=== PATIENT | male | born 1955 | race Caucasian/White ===

== ENCOUNTER 2016-04-01 09:41 | Inpatient (IN) | payer MEDICAID, OTHER ==
[~2016-04-01] VITALS: Ht 167.6 cm; Wt 67.3 kg
[2016-04-01] VITALS (11 sets, daily range): BP systolic 106–139; BP diastolic 59–74; PULSE 63–86; RESP 16–18; TEMP 97.8–98.2; O2SAT 95–100
[2016-04-01] MEDS ORDERED: ASPI81CH CHEW (10:18)
[2016-04-01] MEDS ORDERED: LISI10TA3 PO (10:18)
--- NOTE | 2016-04-01 10:21 | PD ---
HPI . Chest pain Chief Complaint: Chest Pain Time Seen by Provider: 10:09 Travel History International Travel<30 days: No Contact w/Intl Traveler<30days: No Traveled to known affect area: No History of Present Illness HPI The patient presents with a two-week history of chest pain. The pain comes and goes. Pain occurs with exertion and is relieved by rest. He denies any associated symptoms such as shortness of breath, nausea or diaphoresis. Patient has a history of hypertension and previous CVA. He takes aspirin, lisinopril and B12. He has not had his aspirin today. PFSH Past Medical History Cerebrovascular Accident: Yes Social History Tobacco Use: No Allergies-Medications (Allergen,Severity, Reaction): Coded Allergies: No Known Allergies (Unverified , 04/01/16) Reported Meds & Prescriptions Reported Meds & Active Scripts Active Reported Aspirin 81 Mg Chew 81 Mg CHEW DAILY Lisinopril 10 Mg Tab 10 Mg PO DAILY Review of Systems Except as stated in HPI: all other systems reviewed are Neg General / Constitutional: Positive: Other, No: Fever, Chills Cardiovascular: Positive: Chest Pain or Discomfort Respiratory: No: Shortness of Breath Gastrointestinal: No: Nausea, Vomiting Skin: Positive Other (no diaphoresis) Physical Exam Narrative GENERAL: This is a healthy-appearing man in no acute distress. SKIN: Warm and dry. HEAD: Atraumatic. Normocephalic. EYES: Pupils equal and round. ENT: No nasal bleeding or discharge. Mucous membranes pink and moist. NECK: Trachea midline. No JVD noted. CARDIOVASCULAR: Regular rate and rhythm. Heart sounds are normal. RESPIRATORY: No accessory muscle use. Lungs are clear with full air movement throughout. Chest wall is nontender. GASTROINTESTINAL: Abdomen soft, non-tender, nondistended. MUSCULOSKELETAL: No obvious deformities. No edema. NEUROLOGICAL: Awake and alert. No obvious cranial nerve deficits. Motor grossly within normal limits. Normal speech. PSYCHIATRIC: Appropriate mood and affect; insight and judgment normal. Data Data Last Documented VS Vital Signs Date Time Temp Pulse Resp B/P Pulse Ox O2 Delivery O2 Flow Rate FiO2 04/01/16 11:00 76 18 120/65 95 Room Air 04/01/16 09:55 97.9 Orders Electrocardiogram (04/01/16 ) Basic Metabolic Panel (Bmp) (04/01/16 11:09) Ckmb (Isoenzyme) Profile (04/01/16 11:09) Complete Blood Count With Diff (04/01/16 11:09) Magnesium (Mg) (04/01/16 11:09) Prothrombin Time / Inr (Pt) (04/01/16 11:09) Act Partial Throm Time (Ptt) (04/01/16 11:09) Troponin I (04/01/16 11:09) Chest, Single Ap (04/01/16 11:09) Ecg Monitoring (04/01/16 11:09) Bilateral Bp Monitoring (04/01/16 11:09) Iv Access Insert/Monitor (04/01/16 11:09) Oximetry (04/01/16 11:09) Oxygen Administration (04/01/16 11:09) Aspirin Chew (Aspirin Chew) (04/01/16 11:15) Clopidogrel (Plavix) (04/01/16 11:15) Nitroglycerin 2% Oint (Nitroglycerin 2% (04/01/16 11:15) Sodium Chloride 0.9% Flush (Ns Flush) (04/01/16 11:15) CKMB (04/01/16 11:30) CKMB% (04/01/16 11:30) Labs Laboratory Tests Test 04/01/16 11:30 White Blood Count 8.3 TH/MM3 Red Blood Count 5.04 MIL/MM3 Hemoglobin 15.7 GM/DL Hematocrit 45.7 % Mean Corpuscular Volume 90.8 FL Mean Corpuscular Hemoglobin 31.1 PG Mean Corpuscular Hemoglobin 34.3 % Concent Red Cell Distribution Width 13.8 % Platelet Count 368 TH/MM3 Mean Platelet Volume 7.9 FL Neutrophils (%) (Auto) 77.9 % Lymphocytes (%) (Auto) 16.1 % Monocytes (%) (Auto) 5.5 % Eosinophils (%) (Auto) 0.3 % Basophils (%) (Auto) 0.2 % Neutrophils # (Auto) 6.5 TH/MM3 Lymphocytes # (Auto) 1.3 TH/MM3 Monocytes # (Auto) 0.5 TH/MM3 Eosinophils # (Auto) 0.0 TH/MM3 Basophils # (Auto) 0.0 TH/MM3 CBC Comment DIFF FINAL Differential Comment Prothrombin Time 11.1 SEC Prothromb Time International 1.0 RATIO Ratio Activated Partial 28.3 SEC Thromboplast Time Sodium Level 138 MEQ/L Potassium Level 4.0 MEQ/L Chloride Level 103 MEQ/L Carbon Dioxide Level 28.2 MEQ/L Anion Gap 7 MEQ/L Blood Urea Nitrogen 12 MG/DL Creatinine 1.11 MG/DL Estimat Glomerular Filtration 67 ML/MIN Rate Random Glucose 123 MG/DL Calcium Level 8.7 MG/DL Magnesium Level 2.2 MG/DL Total Creatine Kinase 105 U/L Creatine Kinase MB 0.7 NG/ML Troponin I LESS THAN 0.02 NG/ML MDM Medical Decision Making Medical Screen Exam Complete: Yes Emergency Medical Condition: Yes Medical Record Reviewed: Yes (no old records for review.) Interpretation(s) EKG shows a normal sinus rhythm with no acute ischemic change. No old EKGs for comparison. Differential Diagnosis Differential diagnosis of chest pain includes but is not limited to musculoskeletal pain, pulmonary embolism, acute coronary syndrome, pneumonia, pleurisy Narrative Course Patient presents for evaluation of chest pain. I have explained to the patient and to his that we will do an initial evaluation here. If his initial enzymes are negative, he will be sent to the chest pain center for further evaluation. They are in agreement with this plan. CBC & BMP Diagram 04/01/16 11:30 Initial cardiac enzymes are negative. Last Impressions Chest X-Ray 04/01/16 1109 Signed Impressions: Service Date/Time: Friday, April 01, 2016 11:07 - CONCLUSION: No acute disease. Joel Davies MD The chest x-ray was independently viewed by me. The patient will be admitted to the chest pain center. Critical Care Narrative Aggregate critical care time was minutes. Time to perform other separately billable procedures was not included in the critical care time. My time did not include minutes spent treating any other patients simultaneously or on activities that did not directly contribute to the patient's treatment. The services I provided to this patient were to treat and/or prevent clinically significant deterioration due to possible ACS or unstable angina I provided critical care services requiring my management, as noted below: Chart data review, documentation time, medication orders and management, vital sign assessments/reviewing monitor data, ordering and reviewing lab tests, ordering and interpreting/reviewing x-rays and diagnostic studies, care of the patient and discussion of the patient with the admitting physicians Diagnosis Primary Impression: Chest pain Qualified Code: R07.9 - Chest pain, unspecified type Admitting Information Admitting Physician Requests: Observation Condition: Stable Devika Cruz MD Apr 01, 2016 10:21
[2016-04-01] MEDS ORDERED: CLOPIDOGREL 300 MG TAB PO ONE (11:15)
[2016-04-01] MEDS ORDERED: NITROGLYCERIN 2% OINT 1 GM PACKET TOP ONE (11:15)
[2016-04-01] MEDS ORDERED: ASPIRIN 81 MG CHEW TAB PO ONE (11:15)
[2016-04-01] MEDS ORDERED: SODIUM CHLORIDE 0.9% FLUSH 5 ML FLUSH IVF PRN ×3 (11:15→17:00)
--- NOTE | 2016-04-01 11:32 | RADRPT ---
EXAM DATE/TIME: 04/01/2016 11:07 [facility] COMPARISON: No previous studies available for comparison. INDICATIONS : Chest pain for 2 weeks that has become more severe, no shortness of breath, no chest surgery, nonsmok er MEDICAL HISTORY : None. SURGICAL HISTORY : None. ENCOUNTER: Initial ACUITY: 2 weeks PAIN SCORE: 10/10 LOCATION: Bilateral chest FINDINGS: A single view of the chest demonstrates the lungs to be symmetrically aerated without evidence of mas s, infiltrate or effusion. The cardiomediastinal contours are unremarkable. Osseous structures are intact with mild scoliosis and degenerative change. CONCLUSION: No acute disease. Joel Davies MD on April 01, 2016 at 11:30 Board Certified Radiologist. This report was verified electronically.
[2016-04-01 11:54] LABS: AUTOMATED NEUTROPHIL # 6.5 TH/MM3 (1.8-7.7); BASOPHIL % 0.2 % (0.0-2.0); EOSINOPHIL % 0.3 % (0.0-4.0); HEMATOCRIT 45.7 % (39.0-51.0); HEMO FLAGS DIFF FINAL; LYMPH % 16.1 % (9.0-44.0); LYMPHOCYTE # 1.3 TH/MM3 (1.0-4.8); MEAN CELL VOLUME 90.8 FL (80.0-100.0); MEAN CORPUSCULAR HEMOGLOBIN 31.1 PG (27.0-34.0); MEAN CORPUSCULAR HGB CONC 34.3 % (32.0-36.0); MONO % 5.5 % (0.0-8.0); NEUT % 77.9 % (16.0-70.0); PLATELET COUNT 368 TH/MM3 (150-450); RED BLOOD COUNT 5.04 MIL/MM3 (4.50-5.90); RED CELL DISTRIBUTION WIDTH 13.8 % (11.6-17.2); WHITE BLOOD COUNT 8.3 TH/MM3 (4.0-11.0)
[2016-04-01 12:21] LABS: APTT (PATIENT) 28.3 SEC (24.3-30.1); PROTHROMBIN TIME - PATIENT 11.1 SEC (9.8-11.6)
[2016-04-01 12:27] LABS: ANION GAP 7 MEQ/L (5-15); BICARBONATE 28.2 MEQ/L (21.0-32.0); BLOOD UREA NITROGEN 12 MG/DL (7-18); CHLORIDE 103 MEQ/L (98-107); GLOMERULAR FILTRATION RATE 67 ML/MIN (>89); SODIUM (NA) 138 MEQ/L (136-145)
[2016-04-01 12:28] LABS: CREATINE KINASE 105 U/L (39-308); MAGNESIUM 2.2 MG/DL (1.5-2.5)
[2016-04-01 12:40] LABS: CKMB 0.7 NG/ML (0.5-3.6)
[2016-04-01] MEDS ORDERED: ACETAMINOPHEN 500 MG CPLT PO PRN ×2 (13:30→17:00)
[2016-04-01] MEDS ORDERED: TEMAZEPAM 15 MG CAP PO PRN (13:30)
[2016-04-01] MEDS ORDERED: ALPRAZolam 0.25 MG TAB PO PRN (13:30)
[2016-04-01] MEDS ORDERED: ONDANSETRON HCL 4 MG/2 ML VIAL IV PRN ×2 (13:30→17:00)
[2016-04-01] MEDS: PANTOPRAZOLE SOD 40 MG DELAYED RELEASE TAB PO SCH (13:57)
[2016-04-01] MEDS ORDERED: SODIUM CHLOR 0.9% 1000 ML INJ 1,000 ML IV SCH (14:00)
[2016-04-01] MEDS ORDERED: HEPARIN-NS/PF INJ 500 ML ONE (14:16)
[2016-04-01] MEDS ORDERED: MIDAZOLAM HCL 2 MG/2 ML VIAL ONE (14:17)
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
[2016-04-01] MEDS ORDERED: MIDAZOLAM HCL 2 MG/2 ML VIAL IV ONE (14:30)
[2016-04-01] MEDS ORDERED: IODIXANOL 320 MG/ML 100 ML VIAL (for Cath Lab) IV ONE (16:28)
[2016-04-01] MEDS ORDERED: ceFAZolin 2 GM PREMIX 50 ML IV SCH (16:45)
[2016-04-01] MEDS ORDERED: CHLORHEXIDINE GLUCONATE 4% SOLN 120 ML BTL TOPICAL SCH (16:45)
[2016-04-01] MEDS ORDERED: PAPAVERINE INJ 60 MG, NITROGLYCERIN INJ 100 MCG, DILTIAZEM INJ 100 MG in SODIUM CHLORID... IRRIGATION SCH (16:45)
[2016-04-01] MEDS ORDERED: CEFAZOLIN INJ 500 MG in SODIUM CHLORIDE 0.9% IRR BTL 500 ML IRRIGATION SCH (16:45)
[2016-04-01] MEDS ORDERED: SODIUM CHLORIDE 0.9% FLUSH 5 ML FLUSH IV FLUSH PRN (16:45)
[2016-04-01] MEDS ORDERED: METOPROLOL TARTRATE 25 MG TAB PO SCH (16:45)
[2016-04-01] MEDS ORDERED: INSULIN REGULAR (IV INFUSION) 100 UNITS in SODIUM CHLORIDE 0.9% INJ 100 ML IV SCH (16:45)
[2016-04-01 16:57] LABS: CREATINE KINASE 76 U/L (39-308)
--- NOTE | 2016-04-01 16:58 | PD.CAR.PN ---
CVT Progress Note Subjective/Hospital Course: sts discussed with pt RISK SCORES About the STS Risk Calculator Procedure: CAB Only Risk of Mortality: 0.869% Morbidity or Mortality: 10.432% Long Length of Stay: 3.417% Short Length of Stay: 57.835% Permanent Stroke: 1.382% Prolonged Ventilation: 7.037% DSW Infection: 0.223% Renal Failure: 1.783% Reoperation: 4.656% Objective: Vital Signs Date Time Temp Pulse Resp B/P Pulse Ox O2 Delivery O2 Flow Rate FiO2 04/01/16 16:00 67 04/01/16 15:00 75 04/01/16 13:00 77 18 106/59 96 Room Air 04/01/16 11:00 76 18 120/65 95 Room Air 04/01/16 09:55 97.9 86 17 139/74 99 Labs: Laboratory Tests Test 04/01/16 11:30 White Blood Count 8.3 TH/MM3 (4.0-11.0) Red Blood Count 5.04 MIL/MM3 (4.50-5.90) Hemoglobin 15.7 GM/DL (13.0-17.0) Hematocrit 45.7 % (39.0-51.0) Mean Corpuscular Volume 90.8 FL (80.0-100.0) Mean Corpuscular Hemoglobin 31.1 PG (27.0-34.0) Mean Corpuscular Hemoglobin 34.3 % Concent (32.0-36.0) Red Cell Distribution Width 13.8 % (11.6-17.2) Platelet Count 368 TH/MM3 (150-450) Mean Platelet Volume 7.9 FL (7.0-11.0) Neutrophils (%) (Auto) 77.9 % (16.0-70.0) Lymphocytes (%) (Auto) 16.1 % (9.0-44.0) Monocytes (%) (Auto) 5.5 % (0.0-8.0) Eosinophils (%) (Auto) 0.3 % (0.0-4.0) Basophils (%) (Auto) 0.2 % (0.0-2.0) Neutrophils # (Auto) 6.5 TH/MM3 (1.8-7.7) Lymphocytes # (Auto) 1.3 TH/MM3 (1.0-4.8) Monocytes # (Auto) 0.5 TH/MM3 (0-0.9) Eosinophils # (Auto) 0.0 TH/MM3 (0-0.4) Basophils # (Auto) 0.0 TH/MM3 (0-0.2) CBC Comment DIFF FINAL Differential Comment Prothrombin Time 11.1 SEC (9.8-11.6) Prothromb Time International 1.0 RATIO Ratio Activated Partial 28.3 SEC Thromboplast Time (24.3-30.1) Sodium Level 138 MEQ/L (136-145) Potassium Level 4.0 MEQ/L (3.5-5.1) Chloride Level 103 MEQ/L (98-107) Carbon Dioxide Level 28.2 MEQ/L (21.0-32.0) Anion Gap 7 MEQ/L (5-15) Blood Urea Nitrogen 12 MG/DL (7-18) Creatinine 1.11 MG/DL (0.60-1.30) Estimat Glomerular Filtration 67 ML/MIN (>89) Rate Random Glucose 123 MG/DL (74-106) Calcium Level 8.7 MG/DL (8.5-10.1) Magnesium Level 2.2 MG/DL (1.5-2.5) Total Creatine Kinase 105 U/L (39-308) Creatine Kinase MB 0.7 NG/ML (0.5-3.6) Troponin I LESS THAN 0.02 NG/ML (0.02-0.05) Result Diagram: 04/01/16 1130 04/01/16 1130 Jenifer Morin Apr 01, 2016 16:58
[2016-04-01] MEDS ORDERED: MAGNESIUM HYDROXIDE SUSP 30 ML CUP PO PRN (17:00)
[2016-04-01] MEDS ORDERED: NALOXONE HCL 0.4 MG/ML AMP IV PRN (17:00)
[2016-04-01] MEDS ORDERED: SODIUM CHLORIDE 0.9% FLUSH 5 ML FLUSH FLUSH PRN (17:00)
--- NOTE | 2016-04-01 18:24 | MA ---
cc: CHARLIE LI MD DATE: 04/01/2016 PROCEDURE DETAILS The patient was prepped and draped in the usual fashion. A 6 sheath was inserted percutaneously into the right femoral artery. Coronary angiography was done with Floridalma ____ catheters. Left ventriculography was done with pigtail catheter. RESULTS Aortic pressure is 113/61. The left ventricular end-diastolic pressure was 1.0. There was no gradient across the aortic valve. Coronary angiography. The left main was essentially nonexistent. There appeared to be almost two separate ostia for both the circumflex and the LAD. The left circumflex artery demonstrated a 20-30% stenosis in its proximal portion. It was a large dominant artery. The distal portion of the circumflex was free from significant disease although there were some mild luminal irregularities noted. The left anterior descending artery demonstrated a high-grade stenosis at its ostium which was essentially the takeoff from the aorta. It then bifurcated into a large diagonal branch and the LAD. Just proximal from the aorta to the bifurcation a high-grade stenosis of approximately 90% or greater was present. In the standing diagonal branch a secondary branch was given off which also demonstrated a high-grade stenosis of approximately 90%. The right coronary was anatomically nondominant and small, a 90% stenosis was present in its proximal portion. The left ventricle was normal in size. Overall left ventricular ejection fraction was estimated at 60-65%. There is no mitral regurgitation. Aortic valve pull back appeared normal. CONCLUSION The patient demonstrates rather significant disease as described above. He is not a good candidate for percutaneous intervention because of the location of the lesion and the bifurcation. He would appear to be a candidate for bypass grafting to the distal LAD, first and possibly second diagonal branches. It would appear that the right coronary is too small for grafting. Charlie Li MD DLW/KK /3:00 PM /6:13 PM
[2016-04-01] MEDS: METOPROLOL TARTRATE 25 MG TAB PO SCH (18:28)
[2016-04-01] MEDS: NITROGLYCERIN 2% OINT 1 GM PACKET TOP SCH ×2 (18:28→22:25)
[2016-04-01] MEDS: DOCUSATE SODIUM 100 MG CAP PO SCH ×2 (18:28→18:33)
[2016-04-01 19:56] LABS: CREATINE KINASE 63 U/L (39-308)
[2016-04-01] MEDS ORDERED: SODIUM CHLORIDE 0.9% FLUSH 5 ML FLUSH IVF SCH ×2 (21:00)
[2016-04-01] MEDS: SODIUM CHLORIDE 0.9% FLUSH 5 ML FLUSH FLUSH SCH (21:00)
[2016-04-01] MEDS ORDERED: SODIUM CHLORIDE 0.9% FLUSH 5 ML FLUSH IV FLUSH SCH (21:00)
[2016-04-01] MEDS: FAMOTIDINE 20 MG TAB PO SCH (22:25)
--- NOTE | 2016-04-01 22:44 | RADRPT ---
EXAM DATE/TIME: 04/01/2016 21:14 [facility] COMPARISON: No previous studies available for comparison. INDICATIONS : Preop cardiac surgery. MEDICAL HISTORY : Hypertension. CVA. SURGICAL HISTORY : Appendectomy. ENCOUNTER: Initial ACUITY: 1 day PAIN SCORE: 0/10 LOCATION: Bilateral leg. GREATER SAPHENOUS VEIN THIGH: PROXIMAL: Right 2 mm Left 3 mm MID: Right 2 mm Left 2 mm DISTAL: Right Non-visualized Left 2 mm CALF: PROXIMAL: Right Non-visualized Left 2 mm MID: Right Non-visualized Left 2 mm DISTAL: Right Non-visualized Left 1 mm FINDINGS: The venous system of the lower extremities are patent by color Doppler imaging. Measurements of the leg veins (in mm) are listed above. CONCLUSION: Venous mapping as above. Ranjit Guerrier MD on April 01, 2016 at 22:43 Board Certified Radiologist. This report was verified electronically.
--- NOTE | 2016-04-01 22:44 | RADRPT ---
EXAM DATE/TIME: 04/01/2016 21:02 [facility] COMPARISON: No previous studies available for comparison. INDICATIONS : Preop cardiac surgery. MEDICAL HISTORY : Hypertension. CVA. SURGICAL HISTORY : Appendectomy. ENCOUNTER: Initial ACUITY: 1 day PAIN SCORE: 0/10 LOCATION: Bilateral leg. TECHNIQUE: Venous ultrasound of the left and right leg was performed from the inguinal ligament to the proximal calf. Real-time, color Doppler and spectral tracing, compression and augmentation techniques were us ed. FINDINGS: RIGHT LEG: There is normal compressibility of the deep venous system from the inguinal region to the proximal ca lf. No echogenic clot is seen in the lumen of the common femoral, femoral, popliteal, and posterior tibial veins. There is a normal response of the venous system to proximal and distal augmentation an d respiration. LEFT LEG: There is normal compressibility of the deep venous system from the inguinal region to the proximal ca lf. No echogenic clot is seen in the lumen of the common femoral, femoral, popliteal, and posterior tibial veins. There is a normal response of the venous system to proximal and distal augmentation an d respiration. CONCLUSION: No DVT. Ranjit Guerrier MD on April 01, 2016 at 22:42 Board Certified Radiologist. This report was verified electronically.
--- NOTE | 2016-04-01 22:53 | RADRPT ---
EXAM DATE/TIME: 04/01/2016 21:44 [facility] COMPARISON: No previous studies available for comparison. INDICATIONS : Preop cardiac surgery. MEDICAL HISTORY : Hypertension. CVA. SURGICAL HISTORY : Appendectomy. ENCOUNTER: Initial ACUITY: 1 day PAIN SCORE: 0/10 LOCATION: Bilateral neck PEAK SYSTOLIC VELOCITIES (cm/sec): ICA/CCA RATIO: Right: 0.6 Left: 1.4 ICA: Right: 75 Left: 121 CCA: Right: 116 Left: 90 ECA: Right: 197 Left: 153 VERTEBRAL: Right: 37 antegrade Left: 46 antegrade Elevated flow velocities and ICA/CCA ratios have been found to correlate with increased degrees of vessel stenosis, calculated as percentage of diameter relative to a normal segment of distal ICA/CCA FINDINGS: RIGHT CAROTID: There is mild plaque at the carotid bulb region without a significant stenosis is visualized. The wa veforms are within normal limits. LEFT CAROTID: There is moderate soft plaque at the left carotid bulb/proximal internal carotid artery region. The p eak systolic velocities are not clearly elevated in this region however. The waveforms are within no rmal limits. VERTEBRAL ARTERIES: Antegrade flow is seen in both vertebral arteries. MISCELLANEOUS: None. CONCLUSION: Moderate soft plaque at the proximal left internal carotid artery. The peak systolic velocities not c learly elevated. However given the appearance on the grayscale, a significant stenosis cannot be excl uded. Further evaluation with a CTA or MRA would be recommended. Ranjit Guerrier MD on April 01, 2016 at 22:49 Board Certified Radiologist. This report was verified electronically.
[2016-04-02] VITALS (27 sets, daily range): BP systolic 94–132; BP diastolic 52–62; PULSE 62–77; RESP 16–18; TEMP 97.7–98.2; O2SAT 95–96
[2016-04-02 04:55] LABS: P2Y12 REACTION UNITS (PRU) 182 PRU (194-418)
[2016-04-02] MEDS: DOCUSATE SODIUM 100 MG CAP PO SCH ×2 (05:00→17:05)
[2016-04-02] MEDS: NITROGLYCERIN 2% OINT 1 GM PACKET TOP SCH ×3 (06:18→17:05)
[2016-04-02] MEDS: METOPROLOL TARTRATE 25 MG TAB PO SCH ×2 (06:18→17:05)
--- NOTE | 2016-04-02 08:13 | PD.CARD.PN ---
Subjective Subjective Remarks Mild chest pain goig to bathroom. Resolved spontaneously. Objective Vital Signs / I&O Vital Signs Date Time Temp Pulse Resp B/P Pulse Ox O2 Delivery O2 Flow Rate FiO2 04/02/16 08:11 77 04/02/16 07:47 97.7 68 16 118/57 95 04/02/16 07:00 66 04/02/16 05:00 70 04/02/16 04:00 68 04/02/16 03:00 97.9 68 18 117/56 95 04/02/16 03:00 68 04/02/16 02:00 72 04/02/16 01:00 73 04/02/16 00:00 73 04/01/16 23:06 21 04/01/16 23:00 97.8 70 16 133/65 100 04/01/16 23:00 74 04/01/16 22:00 63 04/01/16 21:00 70 04/01/16 20:00 73 04/01/16 19:00 65 04/01/16 19:00 98.2 67 16 129/67 96 04/01/16 16:00 67 04/01/16 15:36 98.2 74 16 138/65 96 04/01/16 15:00 75 04/01/16 13:00 77 18 106/59 96 Room Air 04/01/16 11:00 76 18 120/65 95 Room Air 04/01/16 09:55 97.9 86 17 139/74 99 I/O 04/01/16 04/01/16 04/01/16 04/02/16 04/02/16 04/02/16 07:00 15:00 23:00 07:00 15:00 23:00 Intake Total 480 ml Output Total 250 ml Balance -250 ml 480 ml Intake Oral 480 ml Output Urine Total 250 ml # Voids 3 Physical Exam Lungs clear No murmur groin OK Laboratory Laboratory Tests Test 04/01/16 04/01/16 04/01/16 04/02/16 11:30 16:16 18:32 03:51 White Blood Count 8.3 TH/MM3 Red Blood Count 5.04 MIL/MM3 Hemoglobin 15.7 GM/DL Hematocrit 45.7 % Mean Corpuscular Volume 90.8 FL Mean Corpuscular Hemoglobin 31.1 PG Mean Corpuscular Hemoglobin 34.3 % Concent Red Cell Distribution Width 13.8 % Platelet Count 368 TH/MM3 Mean Platelet Volume 7.9 FL Neutrophils (%) (Auto) 77.9 % Lymphocytes (%) (Auto) 16.1 % Monocytes (%) (Auto) 5.5 % Eosinophils (%) (Auto) 0.3 % Basophils (%) (Auto) 0.2 % Neutrophils # (Auto) 6.5 TH/MM3 Lymphocytes # (Auto) 1.3 TH/MM3 Monocytes # (Auto) 0.5 TH/MM3 Eosinophils # (Auto) 0.0 TH/MM3 Basophils # (Auto) 0.0 TH/MM3 CBC Comment DIFF FINAL Differential Comment Prothrombin Time 11.1 SEC Prothromb Time International 1.0 RATIO Ratio Activated Partial 28.3 SEC Thromboplast Time Sodium Level 138 MEQ/L Potassium Level 4.0 MEQ/L Chloride Level 103 MEQ/L Carbon Dioxide Level 28.2 MEQ/L Anion Gap 7 MEQ/L Blood Urea Nitrogen 12 MG/DL Creatinine 1.11 MG/DL Estimat Glomerular Filtration 67 ML/MIN Rate Random Glucose 123 MG/DL Calcium Level 8.7 MG/DL Magnesium Level 2.2 MG/DL Total Creatine Kinase 105 U/L 76 U/L 63 U/L Creatine Kinase MB 0.7 NG/ML Troponin I LESS THAN 0.02 LESS THAN 0.02 LESS THAN 0.02 NG/ML NG/ML NG/ML Platelet Function P2Y12 React 182 PRU Units Assessment and Plan Assessment and Plan Severe CAD for Cabg Charlie Li MD, FACC Apr 02, 2016 08:13
--- NOTE | 2016-04-02 08:16 | EKG ---
Date Performed: 04/01/2016 Time Performed: 10:05:40 PTAGE: 60 years EKG: Sinus rhythm NORMAL ECG NO PREVIOUS TRACING DOCTOR: Charlie Li Interpretating Date/Time 04/02/2016 08:13:42
--- NOTE | 2016-04-02 08:26 | MH ---
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. He is here for another month, apparently has been riding his bicycle and had been having some progressive chest discomfort. This gentleman apparently has been complaining of some pain in the middle of his chest off and on with heavy exertion for over a year and then 2 weeks ago started noticing some chest discomfort while he was riding his bike and each day it has progressively gotten worse where he has just ridden a short distance and developed this chest pain. He says it lasts a couple of minutes and usually stops at rest. He denied any shortness of breath or diaphoresis. He said he had a stroke up in [place] in December of 2015 was also having a hard time walking up a hill and will also get chest tightness with short of breath at that time. He was told at that time to take aspirin, blood pressure medicine and control his cholesterol which he was intolerant to Lipitor, had significant myopathies and the statin was discontinued and was told to avoid statins by his primary care. We were consulted to evaluate. The patient underwent cardiac catheterization by Dr. Charlie Li which showed the proximal LAD 95%, diagonal 95%, the right coronary artery was 90% occluded. Ejection fraction is 65%. PAST MEDICAL HISTORY The patient's past medical history is significant for: 1. A cerebrovascular accident in December 2015. He had some recall problems with numbers, remembering things. He had no motor dysfunction. He still has occasional problems with recalling some things such as words and trying to get a couple of words out, but otherwise: 2. Hypertension. 3. Hyperlipidemia. 4. Macular degeneration. 5. Glaucoma. 6. Gout. 7. Osteoarthritis. 8. Hiatal hernia. PAST SURGICAL HISTORY Surgery includes: Appendectomy. ALLERGIES NO KNOWN DRUG ALLERGIES. MEDICATIONS He takes: 1. Aspirin 81. 2. Lisinopril 10 p.o. daily. FAMILY HISTORY Father at 61 from non-Hodgkin's lymphoma. Mother at 83 questionable myocardial infarction. SOCIAL HISTORY He smoked for over 30 years a half-a-pack, quit for 10 years, started back up 8 years ago, smoked a couple of cigarettes but stopped completely in December of 2015. Rare alcohol. , two children. REVIEW OF SYSTEMS GENERAL: No night sweats, fever, heat or cold intolerance. SKIN: No psoriasis, itching or hives. HEENT: No blurred vision, hearing loss. RESPIRATORY: No cough or shortness of breath. CARDIOVASCULAR: As above in the history of present illness. GASTROINTESTINAL: No diarrhea, vomiting. GENITOURINARY: No burning, frequency, urgency CENTRAL NERVOUS SYSTEM: No history of TIA, CVA, seizure disorder. ENDOCRINOLOGY: No history of diabetes. No hypothyroidism. PHYSICAL EXAMINATION VITAL SIGNS: On exam blood pressure 138/60, heart rate of 70. Afebrile. GENERAL: The patient is awake, alert, in no acute distress. HEENT: Head is normocephalic, atraumatic. Pupils equal and reactive. Oral mucosa pink, moist. NECK: Supple. No JVD. CARDIOVASCULAR: Heart sounds S1-S2, regular rate and rhythm. No rubs, murmurs or gallops. LUNGS: Clear to auscultation. No wheezes, rales or rhonchi. ABDOMEN: Soft, nontender. No masses or organomegaly. EXTREMITIES: Reveal no cyanosis, clubbing or edema. He has a dressing to his right groin site. No hematoma noted. + distal pulses. LABORATORY FINDINGS Shows hemoglobin of 15, hematocrit of 45, white cell count 8.3, platelet count of 368. Sodium 138, potassium 4.0, BUN 12 with a creatinine of 1.11. Glucose 123. Troponin 0.02, second set is pending and third set pending. IMAGING Chest x-ray Is unremarkable. EKG sinus rhythm with nonspecific T-wave changes. ASSESSMENT AND PLAN This is a 60-year-old male admitted to the emergency room with unstable angina, status post heart catheterization, apparently received 300 mg of Plavix pre catheterization in the ED. He has three-vessel disease with EF of 65%. Procedures, alternatives and risks will be discussed by Dr. Anne-Marie Ramirez and at this time will check a platelet inhibition test in the a.m. to evaluate timing for surgery, possibly on . The patient apparently has history of hyperlipidemia, we will check a lipid profile. Also he is intolerant to statins, will need to be followed up closely. Continue baby aspirin. Low dose beta jeremiah, nitro and planning timing for surgery once we get his platelet inhibition test. DICTATED BY: BERKLEY Gonzales Anne-Marie MD SENDY Vasquez/LAVON /5:05 PM /8:25 AM
[2016-04-02] MEDS ORDERED: ASPIRIN 325 MG TAB PO SCH (09:00)
[2016-04-02] MEDS: NITROGLYCERIN 0.4 MG SL 25 TABS/BTL SL PRN ×2 (09:00→09:13)
[2016-04-02] MEDS ORDERED: LISINOPRIL 10 MG TAB PO SCH (09:00)
[2016-04-02] MEDS: SODIUM CHLORIDE 0.9% FLUSH 5 ML FLUSH FLUSH SCH ×2 (09:15→21:21)
[2016-04-02] MEDS: FAMOTIDINE 20 MG TAB PO SCH ×2 (09:15→21:17)
[2016-04-02] MEDS: ASPIRIN 81 MG CHEW TAB PO SCH (09:15)
[2016-04-02] MEDS: PANTOPRAZOLE SOD 40 MG DELAYED RELEASE TAB PO SCH (09:15)
[2016-04-02] MEDS: ACETAMINOPHEN/HYDROcodone 325 MG/5 MG TAB PO PRN ×2 (10:21→17:05)
[2016-04-02] MEDS ORDERED: DICYCLOMINE HCL 20 MG TAB PO PRN (11:00)
[2016-04-02 11:30] LABS: BLOOD, URINE NEG (NEG); COMMENT (UR) CULT NOT INDICATED; CULTURE IF INDICATED CULT NOT INDICATED; GLUCOSE,URINE NEG (NEG); KETONE, URINE NEG (NEG); MUCUS URINE FEW /lpf (OCC); NITRITE,URINE NEG (NEG); PH, URINE 5.5 (5.0-8.5); SQUAMOUS EPITHELIAL CELL URINE <1 /hpf (0-5); URINE COLOR YELLOW (YELLW/STRAW)
[2016-04-02] MEDS ORDERED: HEPARIN-D5W INJ 250 ML IV SCH (11:45)
[2016-04-02 12:02] LABS: APTT (PATIENT) 30.4 SEC (24.3-30.1); PROTHROMBIN TIME - PATIENT 11.3 SEC (9.8-11.6)
--- NOTE | 2016-04-02 14:46 | PD.CAR.PN ---
CVT Progress Note Subjective/Hospital Course: 60/ male admitted with unstable angina, admitted to chest pain center, and underwent cardiac cath by Dr Li, found to have multivessel disease with EF 65%, received 300mg plavix in ED PMH: IBS, hx of CVA Dec 2015 / has some short term memory and recall loss, no motor deficits , HTN, HLP, glaucoma , gout intolerant to statins ( has severe myalgia ) PRU : 182 04/02 04/02 had episode of chest pain this am after getting up to bathroom , relieved with NTG, ECG unchanged Heparin gtt started, also has hx of irritable bowel, relieved with pain meds, ( hydrocodone) , Bentyl prn on schedule for surgery on Objective: GENERAL: SKIN: Warm and dry. HEAD: Normocephalic. EYES: No scleral icterus. No injection or drainage. NECK: Supple, trachea midline. No JVD or lymphadenopathy. CARDIOVASCULAR: Regular rate and rhythm without murmurs, gallops, or rubs. RESPIRATORY: Breath sounds equal bilaterally. No accessory muscle use. GASTROINTESTINAL: Abdomen soft, non-tender, nondistended. MUSCULOSKELETAL: No cyanosis, or edema. BACK: Nontender without obvious deformity. No CVA tenderness. Vital Signs Date Time Temp Pulse Resp B/P Pulse Ox O2 Delivery O2 Flow Rate FiO2 04/02/16 14:17 77 04/02/16 13:00 67 04/02/16 12:00 64 04/02/16 11:30 98.2 62 16 94/52 96 04/02/16 11:00 77 04/02/16 10:00 70 04/02/16 09:00 65 04/02/16 08:40 95 21 04/02/16 08:11 77 04/02/16 07:47 97.7 68 16 118/57 95 04/02/16 07:00 66 04/02/16 05:00 70 04/02/16 04:00 68 04/02/16 03:00 97.9 68 18 117/56 95 04/02/16 03:00 68 04/02/16 02:00 72 04/02/16 01:00 73 04/02/16 00:00 73 04/01/16 23:06 21 04/01/16 23:00 97.8 70 16 133/65 100 04/01/16 23:00 74 04/01/16 22:00 63 04/01/16 21:00 70 04/01/16 20:00 73 04/01/16 19:00 65 04/01/16 19:00 98.2 67 16 129/67 96 04/01/16 16:00 67 04/01/16 15:36 98.2 74 16 138/65 96 04/01/16 15:00 75 Labs: Laboratory Tests Test 04/02/16 04/02/16 04/02/16 04/02/16 03:51 07:51 11:15 11:29 Platelet Function P2Y12 React 182 PRU Units (194-418) Nasal Screen MRSA (PCR) NEGATIVE (NEGATIVE) Urine Color YELLOW (YELLW/STRAW) Urine Turbidity CLEAR (CLEAR) Urine pH 5.5 (5.0-8.5) Urine Specific [employer] 1.017 (1.002-1.035) Urine Protein NEG mg/dL (NEG-TRACE) Urine Glucose (UA) NEG mg/dL (NEG) Urine Ketones NEG mg/dL (NEG) Urine Occult Blood NEG (NEG) Urine Nitrite NEG (NEG) Urine Bilirubin NEG (NEG) Urine Urobilinogen LESS THAN 2.0 MG/DL (LESS THAN 2.0) Urine Leukocyte Esterase NEG (NEG) Urine WBC 1 /hpf (0-5) Urine Squamous Epithelial <1 /hpf (0-5) Cells Urine Mucus FEW /lpf (OCC) Microscopic Urinalysis Comment CULT NOT INDICATED Prothrombin Time 11.3 SEC (9.8-11.6) Prothromb Time International 1.0 RATIO Ratio Activated Partial 30.4 SEC Thromboplast Time (24.3-30.1) Result Diagram: 04/01/16 1130 04/01/16 1130 Telemetry: NSR (1) Unstable angina Plan: ASA, BB , intolerant to statin for surgery on 03/21 ( has dose of plavix 04/01 episode of chest pain this am , relieved with NTG started on heparin gtt (2) Coronary artery disease (3) Hyperlipemia Plan: intolerant to statin (4) Hypertension Plan: controlled (5) Irritable bowel syndrome (IBS) Plan: prn pain meds, prn Jenifer Heart Apr 02, 2016 14:46
[2016-04-02 15:58] LABS: HEMOGLOBIN A1a 1.1 %; HEMOGLOBIN A1b 0.8 %; HEMOGLOBIN Ao 85.4 %; HEMOGLOBIN F 1.2 %; HEMOGLOBIN LA1C 1.8 %; HEMOGLOBIN P3 3.5 %
[2016-04-02] MEDS ORDERED: HEPARIN SODIUM - IV 10,000 UNITS/10 ML VIAL IV PRN (17:00)
--- NOTE | 2016-04-02 17:42 | EKG ---
Date Performed: 04/02/2016 Time Performed: 09:02:18 PTAGE: 60 years EKG: Sinus rhythm Compared to prior tracing no significant change Normal ECG PREVIOUS TRACING : 04/01/2016 10.05 DOCTOR: Shahriar Gramajo Interpretating Date/Time 04/02/2016 17:40:44
[2016-04-02 19:55] LABS: APTT (PATIENT) 32.9 SEC (24.3-30.1)
[2016-04-02] MEDS: HEPARIN SODIUM - IV 10,000 UNITS/10 ML VIAL IV PRN (21:17)
[2016-04-03] VITALS (21 sets, daily range): BP systolic 114–144; BP diastolic 62–78; PULSE 60–85; RESP 16–18; TEMP 97.7–98.4; O2SAT 95–98
[2016-04-03] MEDS: NITROGLYCERIN 2% OINT 1 GM PACKET TOP SCH ×3 (00:14→10:51)
[2016-04-03 03:54] LABS: APTT (PATIENT) 36.6 SEC (24.3-30.1)
[2016-04-03] MEDS: HEPARIN SODIUM - IV 10,000 UNITS/10 ML VIAL IV PRN ×2 (04:22→20:21)
[2016-04-03] MEDS: ACETAMINOPHEN/HYDROcodone 325 MG/7.5 MG TAB PO PRN ×2 (04:28→11:22)
[2016-04-03] MEDS: NITROGLYCERIN 0.4 MG SL 25 TABS/BTL SL PRN (04:35)
[2016-04-03] MEDS: METOPROLOL TARTRATE 25 MG TAB PO SCH ×2 (06:52→18:00)
[2016-04-03] MEDS: DOCUSATE SODIUM 100 MG CAP PO SCH ×2 (06:52→17:00)
--- NOTE | 2016-04-03 07:41 | PD.CARD.PN ---
Subjective Subjective Remarks continues to have chest pain with exertion Objective Vital Signs / I&O Vital Signs Date Time Temp Pulse Resp B/P Pulse Ox O2 Delivery O2 Flow Rate FiO2 04/03/16 06:05 75 04/03/16 05:00 70 04/03/16 04:00 78 04/03/16 04:00 98.0 79 18 125/66 95 04/03/16 03:00 78 04/03/16 02:00 70 04/03/16 01:00 73 04/03/16 00:00 98.0 85 18 118/62 95 04/03/16 00:00 72 04/02/16 23:00 77 04/02/16 22:00 64 04/02/16 21:00 63 04/02/16 20:00 98.0 67 18 132/62 95 04/02/16 20:00 69 04/02/16 19:00 67 04/02/16 18:16 64 04/02/16 17:25 97.9 70 16 118/57 96 04/02/16 17:00 68 04/02/16 16:00 72 04/02/16 15:00 68 04/02/16 14:17 77 04/02/16 13:00 67 04/02/16 12:00 64 04/02/16 11:30 98.2 62 16 94/52 96 04/02/16 11:00 77 04/02/16 10:00 70 04/02/16 09:00 65 04/02/16 08:40 95 21 04/02/16 08:11 77 04/02/16 07:47 97.7 68 16 118/57 95 I/O 04/02/16 04/02/16 04/02/16 04/03/16 04/03/16 04/03/16 07:00 15:00 23:00 07:00 15:00 23:00 Intake Total 480 ml 768 ml 480 ml Output Total 150 ml 350 ml Balance 480 ml 618 ml 130 ml Intake Oral 480 ml 720 ml 480 ml IV Total 48 ml Output Urine Total 150 ml 350 ml # Voids 3 1 0 # Bowel Movements 1 Physical Exam GENERAL: Well-nourished, well-developed patient in no apparent distress. NECK: No JVD. No carotid bruit. CARDIOVASCULAR: Regular rate and rhythm. S1/S2 no murmur, rub, or gallop. RESPIRATORY: No accessory muscle use. Clear to auscultation. Breath sounds equal bilaterally. GASTROINTESTINAL: Abdomen soft, non-tender, nondistended. MUSCULOSKELETAL: Extremities without clubbing, cyanosis, or edema. Laboratory Laboratory Tests Test 04/02/16 04/02/16 04/02/16 04/02/16 07:51 11:15 11:29 19:17 Nasal Screen MRSA (PCR) NEGATIVE Urine Color YELLOW Urine Turbidity CLEAR Urine pH 5.5 Urine Specific [employer] 1.017 Urine Protein NEG mg/dL Urine Glucose (UA) NEG mg/dL Urine Ketones NEG mg/dL Urine Occult Blood NEG Urine Nitrite NEG Urine Bilirubin NEG Urine Urobilinogen LESS THAN 2.0 MG/DL Urine Leukocyte Esterase NEG Urine WBC 1 /hpf Urine Squamous Epithelial <1 /hpf Cells Urine Mucus FEW /lpf Microscopic Urinalysis Comment CULT NOT INDICATED Prothrombin Time 11.3 SEC Prothromb Time International 1.0 RATIO Ratio Activated Partial 30.4 SEC 32.9 SEC Thromboplast Time Test 04/03/16 04/03/16 03:11 04:30 Activated Partial 36.6 SEC Thromboplast Time Blood Type O POSITIVE O POSITIVE Antibody Screen NEGATIVE Crossmatch Leukocyte-Reduced Red Blood Cells Blood Bank Comment Assessment and Plan Problem List: (1) Unstable angina (2) Coronary artery disease (3) Hyperlipemia (4) Hypertension Assessment and Plan Multivessel CAD - CABG planned for tomorrow HTN - well controlled Fran Munoz Apr 03, 2016 07:41
[2016-04-03] MEDS: SODIUM CHLORIDE 0.9% FLUSH 5 ML FLUSH FLUSH SCH ×2 (07:49→20:25)
[2016-04-03] MEDS: PANTOPRAZOLE SOD 40 MG DELAYED RELEASE TAB PO SCH (08:49)
[2016-04-03] MEDS: FAMOTIDINE 20 MG TAB PO SCH ×2 (08:49→20:25)
[2016-04-03] MEDS: ASPIRIN 81 MG CHEW TAB PO SCH (08:49)
[2016-04-03] MEDS ORDERED: NITROGLYCERIN-DEXTROSE INJ 250 ML ONE (10:50)
[2016-04-03] MEDS ORDERED: NITROGLYCERIN-DEXTROSE INJ 250 ML IV SCH (12:00)
[2016-04-03] MEDS ORDERED: PILL SPLITTER OTHER PRN (12:00)
[2016-04-03] MEDS ORDERED: amLODIPine BESYLATE 5 MG TAB PO SCH (12:00)
[2016-04-03 12:22] LABS: APTT (PATIENT) 40.1 SEC (24.3-30.1)
[2016-04-03 12:35] LABS: INDIRECT BILIRUBIN 0.8 MG/DL (0.0-0.8)
--- NOTE | 2016-04-03 14:37 | PD.CAR.PN ---
CVT Progress Note Subjective/Hospital Course: 60/ male admitted with unstable angina, admitted to chest pain center, and underwent cardiac cath by Dr Li, found to have multivessel disease with EF 65%, received 300mg plavix in ED PMH: IBS, hx of CVA Dec 2015 / has some short term memory and recall loss, no motor deficits , HTN, HLP, glaucoma , gout intolerant to statins ( has severe myalgia ) PRU : 182 04/02 04/02 had episode of chest pain this am after getting up to bathroom , relieved with NTG, ECG unchanged Heparin gtt started, also has hx of irritable bowel, relieved with pain meds, ( hydrocodone) , Bentyl prn on schedule for surgery on 04/03 had episode of chest pain this am while eating did not tell nurse, no ECG changes, trop neg changed to Nitro gtt, continue heparin on ASA, statin BB, pain relieved after 3-5 min no further chest pain since, Dr Ramirez made aware scheduled for surgery in am Objective: GENERAL: SKIN: Warm and dry. HEAD: Normocephalic. EYES: No scleral icterus. No injection or drainage. NECK: Supple, trachea midline. No JVD or lymphadenopathy. CARDIOVASCULAR: Regular rate and rhythm without murmurs, gallops, or rubs. RESPIRATORY: Breath sounds equal bilaterally. No accessory muscle use. GASTROINTESTINAL: Abdomen soft, non-tender, nondistended. MUSCULOSKELETAL: No cyanosis, or edema. BACK: Nontender without obvious deformity. No CVA tenderness. Vital Signs Date Time Temp Pulse Resp B/P Pulse Ox O2 Delivery O2 Flow Rate FiO2 04/03/16 14:00 73 04/03/16 13:00 71 04/03/16 12:00 70 04/03/16 11:00 73 04/03/16 11:00 98.1 75 16 144/67 97 04/03/16 10:00 72 04/03/16 09:00 60 04/03/16 08:00 66 04/03/16 07:00 65 04/03/16 07:00 98.4 66 16 114/68 96 04/03/16 06:05 75 04/03/16 05:00 70 04/03/16 04:00 78 04/03/16 04:00 98.0 79 18 125/66 95 04/03/16 03:00 78 04/03/16 02:00 70 04/03/16 01:00 73 04/03/16 00:00 98.0 85 18 118/62 95 04/03/16 00:00 72 04/02/16 23:00 77 04/02/16 22:00 64 04/02/16 21:00 63 04/02/16 20:00 98.0 67 18 132/62 95 04/02/16 20:00 69 04/02/16 19:00 67 04/02/16 18:16 64 04/02/16 17:25 97.9 70 16 118/57 96 04/02/16 17:00 68 04/02/16 16:00 72 04/02/16 15:00 68 Labs: Laboratory Tests Test 04/03/16 04/03/16 04/03/16 04/03/16 03:11 04:30 11:50 11:54 Activated Partial 36.6 SEC 40.1 SEC Thromboplast Time (24.3-30.1) (24.3-30.1) Blood Type O POSITIVE O POSITIVE Antibody Screen NEGATIVE Crossmatch Leukocyte-Reduced Red Blood Cells Blood Bank Comment Total Bilirubin 1.0 MG/DL (0.2-1.0) Direct Bilirubin 0.2 MG/DL (0.0-0.2) Indirect Bilirubin 0.8 MG/DL (0.0-0.8) Aspartate Amino Transf 12 U/L (15-37) (AST/SGOT) Alanine Aminotransferase 13 U/L (12-78) (ALT/SGPT) Alkaline Phosphatase 52 U/L (45-117) Troponin I 0.02 NG/ML (0.02-0.05) Total Protein 5.3 GM/DL (6.4-8.2) Albumin 2.6 GM/DL (3.4-5.0) Result Diagram: 04/01/16 1130 04/01/16 1130 Telemetry: NSR (1) Unstable angina (2) Coronary artery disease Plan: on BB statin , ASA Heparin and Nitro gtt ECG no changes, trop neg for OR in am (3) Hyperlipemia Plan: on statin (4) Hypertension Plan: stable Jenifer Morin Apr 03, 2016 14:36
[2016-04-03] MEDS ORDERED: MORPHINE SULFATE 4 MG/ML INJ ONE (16:25)
[2016-04-03] MEDS ORDERED: MORPHINE SULFATE 8 MG/ML INJ IV PUSH PRN (16:30)
[2016-04-03] MEDS: ACETAMINOPHEN/HYDROcodone 325 MG/5 MG TAB PO PRN (18:41)
[2016-04-03 19:00] LABS: APTT (PATIENT) 37.8 SEC (24.3-30.1)
[2016-04-03] MEDS ORDERED: ATORVASTATIN 40 MG TAB PO SCH (21:00)
[2016-04-04] VITALS (14 sets, daily range): BP systolic 97–143; BP diastolic 55–80; PULSE 67–83; RESP 12–18; TEMP 97–98.4; O2SAT 97–99
[2016-04-04 03:28] LABS: APTT (PATIENT) 50.8 SEC (24.3-30.1)
[2016-04-04] MEDS ORDERED: SODIUM CHLORID 0.9% 500 ML IV SCH (04:00)
[2016-04-04] MEDS: LACTATED RINGER'S 1000 ML IV SCH (04:00)
[2016-04-04] MEDS ORDERED: INSULIN HUMAN REGULAR 1,000 UNITS/10 ML VIAL SQ PRN (04:00)
[2016-04-04] MEDS ORDERED: VECURONIUM BROMIDE 10 MG VIAL IV ONE (05:00)
[2016-04-04] MEDS ORDERED: PROTAMINE SULFATE 250 MG/25 ML VIAL IV ONE (05:00)
[2016-04-04] MEDS ORDERED: AMIODARONE HCL 150 MG/3 ML VIAL IV ONE (05:00)
[2016-04-04] MEDS ORDERED: PHENYLEPHRINE HCL 10 MG/ML VIAL IV ONE (05:00)
[2016-04-04] MEDS ORDERED: AMINOCAPROIC ACID INJ 250 MG/ML 20 ML VIAL IV ONE (05:00)
[2016-04-04] MEDS ORDERED: NITROGLYCERIN-DEXTROSE INJ 250 ML IV ONE (05:00)
[2016-04-04] MEDS: DOCUSATE SODIUM 100 MG CAP PO SCH ×2 (05:00→16:42)
[2016-04-04] MEDS ORDERED: LIDOCAINE HCL 1% 30 ML VIAL OTHER ONE (05:00)
[2016-04-04] MEDS ORDERED: DEXMEDETOMIDINE INJ 50 ML IV ONE (05:00)
[2016-04-04] MEDS ORDERED: VANCOMYCIN HCL 1000 MG VIAL ONE (06:27)
[2016-04-04] MEDS ORDERED: methylPREDNISolone SOD SUCC 125 MG/2 ML VIAL ONE (06:27)
[2016-04-04] MEDS ORDERED: HEPARIN SODIUM - SQ 10,000 UNITS/ML VIAL ONE (06:27)
[2016-04-04] MEDS: METOPROLOL TARTRATE 25 MG TAB PO SCH (06:38)
[2016-04-04] MEDS ORDERED: CARDIOPLEGIC IRR 1,000 ML ONE (06:40)
[2016-04-04] MEDS ORDERED: POTASSIUM CHLORIDE 40 MEQ/20 ML VIAL ONE (06:41)
[2016-04-04] MEDS ORDERED: SODIUM BICARBONATE 8.4% INJ 50 ML ONE (06:41)
[2016-04-04] MEDS ORDERED: MANNITOL INJ 50 ML ONE (06:41)
[2016-04-04] MEDS ORDERED: ALBUMIN HUMAN 25% 12.5 GM/50 ML BAGP IV ONE (06:42)
[2016-04-04] MEDS ORDERED: HEPARIN SODIUM - IV 10,000 UNITS/10 ML VIAL ONE (06:43)
[2016-04-04] MEDS: ASPIRIN 81 MG CHEW TAB PO SCH (09:00)
[2016-04-04] MEDS: FAMOTIDINE 20 MG TAB PO SCH ×2 (09:00→20:58)
[2016-04-04] MEDS: PANTOPRAZOLE SOD 40 MG DELAYED RELEASE TAB PO SCH (09:00)
[2016-04-04] MEDS ORDERED: LACTATED RINGER'S 1000 ML INJ 500 ML IV PRN (09:56)
[2016-04-04] MEDS ORDERED: CALCIUM CHLORIDE INJ 1 GM in SODIUM CHLORIDE 0.9% INJ 100 ML IV PRN (10:00)
[2016-04-04] MEDS ORDERED: SODIUM CHLORIDE 0.9% FLUSH 5 ML FLUSH IV FLUSH PRN (10:00)
[2016-04-04] MEDS ORDERED: POTASSIUM CHLORIDE 20 MEQ CONTROLLED RELEASE TAB PO PRN ×2 (10:00)
[2016-04-04] MEDS ORDERED: POTASSIUM CHLOR 20 MEQ PREMIX 100 ML IV PRN ×2 (10:00)
[2016-04-04] MEDS ORDERED: CLEVIDIPINE INJ 50 ML IV SCH (10:00)
[2016-04-04] MEDS ORDERED: MAGNESIUM SULFATE INJ 2 GM in SODIUM CHLORIDE 0.9% INJ 100 ML IV PRN ×4 (10:00)
[2016-04-04] MEDS ORDERED: ACETAMINOPHEN 650 MG SUPP RECTAL PRN (10:00)
[2016-04-04] MEDS ORDERED: METOPROLOL TARTRATE 5 MG/5 ML VIAL IV PUSH PRN (10:00)
[2016-04-04] MEDS ORDERED: INSULIN REGULAR (IV INFUSION) 100 UNITS in SODIUM CHLORIDE 0.9% INJ 99 ML IV SCH (10:00)
[2016-04-04] MEDS ORDERED: Post-op Orders (for Pharmacy) MISC OTHER ONE (10:00)
[2016-04-04] MEDS ORDERED: hydrALAZINE HCL 20 MG/ML VIAL IV PRN (10:00)
[2016-04-04] MEDS ORDERED: CALCIUM CHLORIDE 10% 1 GRAM/10 ML VIAL IV PRN (10:00)
[2016-04-04] MEDS ORDERED: DEXTROSE 50% IN WATER 50 ML VIAL(D50) IV PUSH PRN (10:00)
[2016-04-04] MEDS ORDERED: ACETAMINOPHEN 325 MG TAB PO PRN (10:00)
--- NOTE | 2016-04-04 10:08 | PD.OP ---
cc: Anne-Marie Ramirez MD; Charlie Li MD, [facility] Operative Report Date of Surgery: Apr 04, 2016 Preoperative Diagnosis: (1) Chest pain (2) Unstable angina (3) Coronary artery disease Postoperative Diagnosis: same Procedure: CABG x 2 JIANG to LAD SVG to D1 EVH Anesthesia: Dr. Paula Surgeon: Anne-Marie Ramirez Dentist(s): Aaron Álvarez Operation and Findings: The risks, benefits, complications, treatment options, and expected outcomes were discussed with the patient. The possibilities of reaction to medication, pulmonary aspiration, perforation of viscus, bleeding, recurrent infection, the need for additional procedures, failure to diagnose a condition, and creating a complication requiring transfusion or operation were discussed with the patient. The patient concurred with the proposed plan, giving informed consent. The site of surgery properly noted/marked. The patient was taken to Operating Room, identified as Ranjit Epstein and the procedure verified as CABG, EVH. A Time Out was held and the above information confirmed. Standard monitoring lines and Nunes catheter were placed. General anesthesia was induced. The patient was prepped and draped in a sterile fashion. A median sternotomy was performed and electrocautery was used to obtain hemostasis. The left internal mammary artery was procured as a pedicle from the 7th rib to the 1st rib in the usual manner. Simultaneously left greater saphenous vein was procured from the left leg using a minimally invasive endoscopic technique. The vein was prepared for anastomosis and the leg wound was irrigated and closed in 2 layers. The pericardium was opened and a pericardial sling was created using interrupted 0 silk sutures. The patient was heparinized for cardiopulmonary bypass and the distal mammary pedicle was instrumented for anastomosis. The heart was instrumented for cardiopulmonary bypass in the usual manner. Antegrade blood cardioplegia was employed. The patient was placed on cardiopulmonary bypass. An aortic cross-clamp was applied and the heart was arrested using cold blood cardioplegia. Antegrade cardioplegia was administered after he each anastomosis. After adequate arrest,the 1st diagonal artery was then opened with a [place] blade and found to be a 2 millimeter good target. Saphenous vein was approximated to the D1 artery using a running 7 0 Prolene suture. The graft was measured for length and orientation and was suspended from the pericardium. The distal LAD was opened with a [place] blade and found to be a 1.5 millimeter good target. The left internal mammary artery was approximated to the LAD using a running 7 0 Prolene suture. The pedicle was attached to the epicardium using interrupted 5 0 silk suture. The patient was systemically rewarmed and received a hotshot dose of warm blood cardioplegia. The aorta was vented and the proximal anastomosis to the D1 graft was accomplished using a running 5 0 Prolene suture after creating an aortotomy was a 5 millimeter punch. The cross -clamp was removed and all proximal and distal anastomoses were examined for hemostasis. The patient was weaned from cardiopulmonary bypass. Protamine was given. There was no adverse reaction. Decannulation was carried out without incident. Wound was checked for hemostasis which was obtained using electrocautery. A 36 [place] mediastinal and 32 [place] left pleural chest was were placed and secured to the skin with 0 silk suture. The sternum was closed with stainless steel wire. The fascia was closed with 1. PDS. The subcutaneous tissue was closed using a running 2-0 Vicryl suture. The skin was closed with 4- 0 Monocryl. Sterile dressings were placed. At the end of the operation, all sponge, instruments, and needle counts were correct. The patient was transferred to the CVICU in stable condition. Findings: Good targets XC: 30 min CPB: 36 min Drains: mediastinal x 1 pleural x 1 Complications: none Disposition: to CVICU in stable condition Anne-Marie Ramirez MD Apr 04, 2016 10:08
[2016-04-04] MEDS ORDERED: MIDAZOLAM HCL 5 MG/5 ML VIAL ONE ×2 (10:55)
[2016-04-04] MEDS ORDERED: fentaNYL CITRATE 1000 MCG/20 ML VIAL ONE (10:55)
--- NOTE | 2016-04-04 12:05 | RADRPT ---
EXAM DATE/TIME: 04/04/2016 10:51 [facility] COMPARISON: No previous studies available for comparison. INDICATIONS : S/p cabg. MEDICAL HISTORY : Hypertension. Stroke. SURGICAL HISTORY : None. ENCOUNTER: Initial ACUITY: 1 day PAIN SCORE: Non-responsive. LOCATION: Bilateral chest FINDINGS: Endotracheal tube in satisfactory position. NG enters stomach. Central and left chest tube without pn eumothorax. Right central line in superior vena cava. Minimal bilateral mostly basilar airspace conso lidation. No effusions. No pneumothorax. CONCLUSION: 1. Support apparatus in satisfactory position. Minimal basilar airspace disease. No pneumothorax. Danish Mcclelland MD on April 04, 2016 at 12:03 Board Certified Radiologist. This report was verified electronically.
[2016-04-04] MEDS: POTASSIUM CHLOR 20 MEQ PREMIX 100 ML IV PRN ×2 (13:24→18:21)
[2016-04-04] MEDS: ACETAMINOPHEN 1000 MG/100 ML VIAL IV SCH ×2 (13:25→20:57)
[2016-04-04] MEDS: AMIODARONE 200 MG TAB PO SCH ×2 (13:56→22:48)
--- NOTE | 2016-04-04 14:22 | HHI.FF ---
Face to Face Verification Diagnosis: (1) Unstable angina (2) Irritable bowel syndrome (IBS) (3) S/P CABG x 2 Home Health Nursing Order: Signs/symptoms of disease process Wound care and dressing changes Nursing assessment with vital signs Instructions: Heart and Vascular Surgery patients *Special attention to sternal dressing Mandatory frequency Assess and evaluation, 4 days in a row The next week 3X week 2 times a week for 4 weeks 1 time a week for 5 weeks Schedule Heart and Vascular patients for full 60 day certification period Initial visit Review Open Heart Surgery Discharge Instructions (Sternal precautions, Activity, Elastic hose, Incision care, Driving, Incentive spirometry, Smoking, [place], Work and other) Need Betadine to paint incision Medication reconciliation Importance of follow up care/ check on appointments Make calendar record temperature daily When to call [facility] at Home nurse, review instructions, phone list Incentive Spirometry, demonstration Visit 1- Begin discharge instruction for patient family and/ or caregiver using teach back method- Signs and symptoms of infection Disease characteristics Medicines and side effects Foods and nutrition/ appetite Infection control/ hand washing/ hygiene Visit 2- Continue teaching Discharge instructions- include additional information on smoking cessation , sternal dressing (sternal vac) Visit 3- Continue teaching- Cough and deep breathing, incision monitoring. Choose my plate Visit 4- Continue teaching- Discuss limitations Discuss how they are feeling Discuss progress toward goals Incentive spirometry Q1 hr x 10, while awake, also use acapella device hourly whole awake Sternal Breast Bone Precautions: NO pushing or pulling, ( pt must use sternal pillow to support chest with all activities and with coughing ( takes up to 3 months breast bone to heal ) All females to wear sternal bra , launder as needed Daily incision care: ok to shower daily, no tub bath. Wash all incisions with liquid dial soap, clean wash cloth to each site, rinse and pat dry. Observe for any signs of infection, such as drainage which is dark yellow, mendes, green or foul smelling. Immediately report to the surgeon any drainage from the chest incision, or legs, and for any abnormal drainage from the chest tube sites. Notify surgeon if any temp >101.5 degrees F. When specialty dressing removed/ or if you do not have one, continue to shower daily as above, then rinse and pat incision dry and paint with betadine daily x 5 days. Allow steri strips to fall off if you have any. Avoid lotions, creams, salves, oils, etc. for the first month Please see attached forms for additional instructions regarding post Open Heart specialty wound vacuum dressings. ROSA ELENA or Prevena , Dressing to be removed by Nursing staff on For Dr. Ramirez patients , please obtain CBC, BMP, PA & Lat CXR in 2 weeks, results to Dr. Ramirez ( prescription will be given) ( ) (Tele: [phone]) , Valve replacement pts will need 2decho in 2 weeks with results to Dr. Ramirez . Please obtain 2 d echo at your musical instrument maker office if possible F/U appointment: as per DC instructions: PCP in 2 weeks, CV surgeon 2 weeks, Music Store Manager 3-4 weeks For any questions regarding incisions/ dressing / meds / post op care or above Symptoms, Friday 8am-5pm Heart & Vascular Surgery Office ( Dr. Jordan & Dr. Ramirez), After Hours / Nights (5pm -8am) Weekends and Holidays Please call [facility] Cardiac Intermediate Care Unit (CIC) Charge Nurse I have seen patient Ranjit Epstein on 04/04/16. My clinical findings support the need for the requested home health care services because: Deconditioned w/ increased weakness I certify that my clinical findings support that this patient is homebound because: Post-op weakness Impaired cognitive ability/safety Jenifer Morin Apr 04, 2016 14:22
[2016-04-04] MEDS: ONDANSETRON HCL 4 MG/2 ML VIAL IV PUSH PRN (15:30)
[2016-04-04] MEDS: ACETAMINOPHEN/HYDROcodone 325 MG/7.5 MG TAB PO PRN ×3 (16:42→22:48)
[2016-04-04] MEDS ORDERED: KETOROLAC TROMETHAMINE 30 MG/ML (IVP) VIAL ONE (17:59)
[2016-04-04] MEDS ORDERED: KETOROLAC TROMETHAMINE 30 MG/ML (IVP) VIAL IV PUSH ONE (18:15)
[2016-04-04] MEDS ORDERED: ACETAMINOPHEN/HYDROcodone 325 MG/5 MG TAB PO PRN ×2 (18:15)
[2016-04-04] MEDS: SODIUM CHLORIDE 0.9% FLUSH 5 ML FLUSH IV FLUSH SCH (20:58)
[2016-04-05] VITALS (18 sets, daily range): BP systolic 91–122; BP diastolic 53–75; PULSE 70–117; RESP 16–28; TEMP 97.5–99.9; O2SAT 93–99
[2016-04-05] MEDS: KETOROLAC TROMETHAMINE 30 MG/ML (IVP) VIAL IV PUSH PRN ×2 (01:37→20:02)
[2016-04-05] MEDS: ACETAMINOPHEN 1000 MG/100 ML VIAL IV SCH ×2 (02:16→08:11)
[2016-04-05] MEDS: LACTATED RINGER'S 1000 ML IV SCH (04:00)
[2016-04-05 05:00] LABS: HEMATOCRIT 31.6 % (39.0-51.0); MEAN CELL VOLUME 91.4 FL (80.0-100.0); MEAN CORPUSCULAR HEMOGLOBIN 30.2 PG (27.0-34.0); MEAN CORPUSCULAR HGB CONC 33.1 % (32.0-36.0); PLATELET COUNT 261 TH/MM3 (150-450); RED BLOOD COUNT 3.46 MIL/MM3 (4.50-5.90); RED CELL DISTRIBUTION WIDTH 13.4 % (11.6-17.2); REVIEW FLAG FINAL; WHITE BLOOD COUNT 21.4 TH/MM3 (4.0-11.0)
[2016-04-05] MEDS: DOCUSATE SODIUM 100 MG CAP PO SCH ×2 (05:06→21:00)
[2016-04-05] MEDS: AMIODARONE 200 MG TAB PO SCH ×3 (05:06→22:44)
[2016-04-05] MEDS: ACETAMINOPHEN/HYDROcodone 325 MG/7.5 MG TAB PO PRN (05:06)
[2016-04-05 05:11] LABS: POTASSIUM 4.6 MEQ/L (3.5-5.1)
--- NOTE | 2016-04-05 06:34 | RADRPT ---
EXAM DATE/TIME: 04/05/2016 05:48 [facility] COMPARISON: CHEST SINGLE AP, April 04, 2016, 10:51. INDICATIONS : Status post CABG. MEDICAL HISTORY : Hypertension. Stroke. SURGICAL HISTORY : None. ENCOUNTER: Subsequent ACUITY: 4 - 6 days PAIN SCORE: 2/10 LOCATION: chest FINDINGS: Examination of the chest demonstrates postoperative findings status post median sternotomy. Support l velasquez and tubes are in satisfactory position. Endotracheal tube is in place above the pelon. There is no evidence of pneumothorax. There is subsegmental atelectasis in the both bases. CONCLUSION: 1. Postsurgical changes as above. Subsegmental atelectasis both bases. Charlie Sims MD on April 05, 2016 at 6:31 Board Certified Radiologist. This report was verified electronically.
--- NOTE | 2016-04-05 07:28 | PD.CARD.PN ---
Subjective Subjective Remarks denies chest pain Objective Vital Signs / I&O Vital Signs Date Time Temp Pulse Resp B/P Pulse Ox O2 Delivery O2 Flow Rate FiO2 04/05/16 06:10 18 04/05/16 03:00 74 04/05/16 03:00 98.4 74 18 91/75 99 105/53 04/05/16 02:50 18 04/04/16 23:00 83 04/04/16 23:00 97.6 83 18 113/64 98 106/77 04/04/16 21:30 18 04/04/16 21:12 99 Nasal Cannula 3.00 04/04/16 19:00 98.2 74 18 123/73 98 107/65 04/04/16 19:00 74 04/04/16 15:00 72 04/04/16 15:00 97.9 04/04/16 15:00 97.9 72 17 139/73 99 131/55 04/04/16 13:02 99 Nasal Cannula 4 04/04/16 13:02 99 Nasal Cannula 4.00 04/04/16 13:00 97.7 04/04/16 12:16 50 04/04/16 12:16 98.0 68 12 138/68 97 97/55 04/04/16 12:06 68 04/04/16 12:00 97.0 68 12 139/80 98 143/60 04/04/16 10:50 98.3 04/04/16 10:49 97 50 04/04/16 10:45 50 04/04/16 10:45 98.0 68 12 138/68 97 97/55 I/O 04/04/16 04/04/16 04/04/16 04/05/16 04/05/16 04/05/16 07:00 15:00 23:00 07:00 15:00 23:00 Intake Total 480 ml 2535 ml 739 ml Output Total 400 ml 850 ml 735 ml Balance 80 ml 1685 ml 4 ml Intake Oral 240 ml 300 ml 320 ml IV Total 240 ml 2235 ml 419 ml Output Urine Total 400 ml 600 ml 685 ml Stool Total 0 ml 0 ml Chest Tube Drainage Total 250 ml 50 ml # Bowel Movements 0 Physical Exam GENERAL: Well-nourished, well-developed patient in no apparent distress. NECK: No JVD. No carotid bruit. CARDIOVASCULAR: Regular rate and rhythm. S1/S2 no murmur, rub, or gallop. RESPIRATORY: No accessory muscle use. Clear to auscultation. Breath sounds equal bilaterally. GASTROINTESTINAL: Abdomen soft, non-tender, nondistended. MUSCULOSKELETAL: Extremities without clubbing, cyanosis, or edema. Laboratory Laboratory Tests Test 04/04/16 04/05/16 21:40 04:13 Potassium Level 4.2 MEQ/L 4.6 MEQ/L White Blood Count 21.4 TH/MM3 Red Blood Count 3.46 MIL/MM3 Hemoglobin 10.5 GM/DL Hematocrit 31.6 % Mean Corpuscular Volume 91.4 FL Mean Corpuscular Hemoglobin 30.2 PG Mean Corpuscular Hemoglobin 33.1 % Concent Red Cell Distribution Width 13.4 % Platelet Count 261 TH/MM3 Mean Platelet Volume 7.9 FL Sodium Level 138 MEQ/L Chloride Level 104 MEQ/L Carbon Dioxide Level 30.0 MEQ/L Anion Gap 4 MEQ/L Blood Urea Nitrogen 10 MG/DL Creatinine 0.84 MG/DL Estimat Glomerular Filtration 93 ML/MIN Rate Random Glucose 112 MG/DL Calcium Level 7.9 MG/DL Magnesium Level 2.0 MG/DL Assessment and Plan Problem List: (1) Unstable angina (2) Coronary artery disease (3) Hyperlipemia (4) Hypertension Assessment and Plan CAD s/p 2 vessel CABG JIANG-LAD and SVG-D1 HTN - actually hypotensive, hold beta jeremiah Fran Munoz Apr 05, 2016 07:27
[2016-04-05] MEDS ORDERED: DEXTROSE 50% IN WATER 50 ML VIAL(D50) IV PRN (08:45)
[2016-04-05] MEDS ORDERED: SOD PHOSPHATE/SOD BIPHOSPHATE (ADULT) ENEMA 133ML RECTAL PRN (08:45)
[2016-04-05] MEDS ORDERED: GLUCAGON 1 MG/ML VIAL OTHER PRN (08:45)
[2016-04-05] MEDS ORDERED: BISACODYL 10 MG SUPP RECTAL PRN (08:45)
[2016-04-05] MEDS: ASPIRIN 81 MG CHEW TAB PO SCH (09:00)
[2016-04-05] MEDS: MULTIVITAMINS/MINERALS THERAPEUTIC TAB PO SCH (09:08)
[2016-04-05] MEDS: SODIUM CHLORIDE 0.9% FLUSH 5 ML FLUSH IV FLUSH SCH ×2 (09:08→21:17)
[2016-04-05] MEDS: MAGNESIUM HYDROXIDE SUSP 30 ML CUP PO SCH (09:08)
[2016-04-05] MEDS: PANTOPRAZOLE SOD 40 MG DELAYED RELEASE TAB PO SCH (09:09)
[2016-04-05] MEDS: METOPROLOL TARTRATE 25 MG TAB PO SCH ×2 (09:09→21:15)
[2016-04-05] MEDS: FAMOTIDINE 20 MG TAB PO SCH ×2 (09:09→21:00)
[2016-04-05] MEDS: INSULIN ASPART SUPPLEMENTAL SCALE SQ SCH ×4 (10:23→21:23)
[2016-04-05] MEDS: RESP: ALBUTEROL 2.5 MG/IPRATROPIUM 0.5 MG NEB (SCH) NEB ×2 (13:19→19:39)
--- NOTE | 2016-04-05 14:19 | PD.CAR.PN ---
CVT Progress Note CVT: POD #: 1 Subjective/Hospital Course: 60/ male admitted with unstable angina, admitted to chest pain center, and underwent cardiac cath by Dr Li, found to have multivessel disease with EF 65%, received 300mg plavix in ED PMH: IBS, hx of CVA Dec 2015 / has some short term memory and recall loss, no motor deficits , HTN, HLP, glaucoma , gout intolerant to statins ( has severe myalgia ) PRU : 182 04/02 04/02 had episode of chest pain this am after getting up to bathroom , relieved with NTG, ECG unchanged Heparin gtt started, also has hx of irritable bowel, relieved with pain meds, ( hydrocodone) , Bentyl prn on schedule for surgery on 04/03 had episode of chest pain this am while eating did not tell nurse, no ECG changes, trop neg changed to Nitro gtt, continue heparin on ASA, statin BB, pain relieved after 3-5 min no further chest pain since, Dr Ramirez made aware scheduled for surgery in am 04/04 CABG x 2, JIANG to LAD, SVG to D1, EVH extubated after surgery, crystalloid 2000cc, cellsaver 720cc, urine 600cc 04/05 pt has some confusion during the night hx of CVA with cognitive and memory recall in Dec 2015 mildly confused this am, was able to ambulate with rolling walker to stepdown unit with minimal assist no motor deficit noted, + facial symmetry , will need to start on plavix when chest tube out PT/OT/ speech consulted for cognitive eval leave chest tube in , pulm toileting narcotics minimized, IV narcotics dc Objective: GENERAL: SKIN: Warm and dry./ dressing in place to chest HEAD: Normocephalic. EYES: No scleral icterus. No injection or drainage. pearla , 3mm + facial symmetry NECK: Supple, trachea midline. No JVD or lymphadenopathy. CARDIOVASCULAR: Regular rate and rhythm without murmurs, gallops, or rubs. RESPIRATORY: Breath sounds equal bilaterally. No accessory muscle use. GASTROINTESTINAL: Abdomen soft, non-tender, nondistended. MUSCULOSKELETAL: No cyanosis, or edema. BACK: Nontender without obvious deformity. No CVA tenderness. Neuro : awake , alert to name and place, not time , MILLER 5/5 DTR equal ammonia worker, Vital Signs Date Time Temp Pulse Resp B/P Pulse Ox O2 Delivery O2 Flow Rate FiO2 04/05/16 14:00 79 04/05/16 13:00 73 04/05/16 12:00 74 04/05/16 11:00 97.5 73 20 119/57 96 04/05/16 11:00 73 04/05/16 10:00 73 04/05/16 08:50 19 04/05/16 07:49 83 04/05/16 07:46 97.7 83 18 116/55 97 Arterial Line 04/05/16 06:10 18 04/05/16 03:00 74 04/05/16 03:00 98.4 74 18 91/75 99 105/53 04/05/16 02:50 18 04/04/16 23:00 83 04/04/16 23:00 97.6 83 18 113/64 98 106/77 04/04/16 21:12 99 Nasal Cannula 3.00 04/04/16 19:00 98.2 74 18 123/73 98 107/65 04/04/16 19:00 74 04/04/16 15:00 72 04/04/16 15:00 97.9 04/04/16 15:00 97.9 72 17 139/73 99 131/55 Labs: Laboratory Tests Test 04/05/16 04:13 White Blood Count 21.4 TH/MM3 (4.0-11.0) Red Blood Count 3.46 MIL/MM3 (4.50-5.90) Hemoglobin 10.5 GM/DL (13.0-17.0) Hematocrit 31.6 % (39.0-51.0) Mean Corpuscular Volume 91.4 FL (80.0-100.0) Mean Corpuscular Hemoglobin 30.2 PG (27.0-34.0) Mean Corpuscular Hemoglobin 33.1 % Concent (32.0-36.0) Red Cell Distribution Width 13.4 % (11.6-17.2) Platelet Count 261 TH/MM3 (150-450) Mean Platelet Volume 7.9 FL (7.0-11.0) Sodium Level 138 MEQ/L (136-145) Potassium Level 4.6 MEQ/L (3.5-5.1) Chloride Level 104 MEQ/L (98-107) Carbon Dioxide Level 30.0 MEQ/L (21.0-32.0) Anion Gap 4 MEQ/L (5-15) Blood Urea Nitrogen 10 MG/DL (7-18) Creatinine 0.84 MG/DL (0.60-1.30) Estimat Glomerular Filtration 93 ML/MIN (>89) Rate Random Glucose 112 MG/DL (74-106) Calcium Level 7.9 MG/DL (8.5-10.1) Magnesium Level 2.0 MG/DL (1.5-2.5) Result Diagram: 04/05/1641204/05/16412 Telemetry: NSR (1) Coronary artery disease (2) S/P CABG x 2 Plan: on BB, intolerant to statin, has severe myalgia ASA , start plavix in am aggressive pulm toileting nebs, ezpap , acapella OOB, ambulate CM eval for HHC (3) Unstable angina (4) Hypertension Plan: stable (5) Hyperlipemia Plan: intolerant to statin, has severe myalgia heart healthy diet (6) History of CVA (cerebrovascular accident) Plan: PT/OT/ speech start Plavix in am Jenifer Morin Apr 05, 2016 14:19
[2016-04-05] MEDS: ONDANSETRON HCL 4 MG/2 ML VIAL IV PUSH PRN (17:08)
--- NOTE | 2016-04-05 17:28 | EKG ---
Date Performed: 04/05/2016 Time Performed: 05:52:10 PTAGE: 60 years EKG: CONSIDER ACUTE ST ELEVATION UT Sinus rhythm Anterolateral ST elevation, CONSIDER ACUTE INFARCT Abnormal ECG PREVIOUS TRACING : 04/02/[address] elevation in the anterolateral precordium is new since p rior tracing. Extends also over the inferior wall. Possible acute UT. Clinical correlation strongly r ecommended. DOCTOR: Ousmane Grijalva Interpretating Date/Time 04/05/2016 17:26:38
[2016-04-05] MEDS: SENNOSIDES 8.6 MG TAB PO SCH (21:19)
--- NOTE | 2016-04-05 22:24 | RADRPT ---
EXAM DATE/TIME: 04/05/2016 22:01 [facility] COMPARISON: No previous studies available for comparison. INDICATIONS : Altered mental status. RADIATION DOSE: 56.36 CTDIvol (mGy) MEDICAL HISTORY : None SURGICAL HISTORY : None. ENCOUNTER: Initial ACUITY: 1 day PAIN SCALE: 0/10 LOCATION: cranial TECHNIQUE: Multiple contiguous axial images were obtained of the head. Using automated exposure control and adj ustment of the mA and/or kV according to patient size, radiation dose was kept as low as reasonably a chievable to obtain optimal diagnostic quality images. FINDINGS: CEREBRUM: The ventricles are normal for age. There is some small areas of low density seen in the left posteri or parietal and left posterior temporal lobes likely representing areas of encephalomalacia. No evide nce of midline shift, mass lesion, hemorrhage or acute infarction. No extra-axial fluid collections are seen. POSTERIOR FOSSA: The cerebellum and brainstem are intact. The 4th ventricle is midline. The cerebellopontine angle i s unremarkable. EXTRACRANIAL: The visualized portion of the orbits is intact. SKULL: The calvaria is intact. No evidence of skull fracture. CONCLUSION: Linear areas of low density in the posterior left temporal and parietal lobes likely representing are as of encephalomalacia. Areas of mass effect or hemorrhage are not seen. An acute abnormality is not clearly seen. Ranjit Guerrier MD on April 05, 2016 at 22:20 Board Certified Radiologist. This report was verified electronically.
[2016-04-05] MEDS: ACETAMINOPHEN/HYDROcodone 325 MG/5 MG TAB PO PRN (22:45)
[2016-04-06] VITALS (28 sets, daily range): BP systolic 128–141; BP diastolic 63–68; PULSE 62–83; RESP 18–20; TEMP 98.5–98.9; O2SAT 92–95
[2016-04-06] MEDS: INSULIN ASPART SUPPLEMENTAL SCALE SQ SCH ×6 (02:00→20:39)
[2016-04-06] MEDS: ACETAMINOPHEN/HYDROcodone 325 MG/5 MG TAB PO PRN ×3 (03:05→20:34)
[2016-04-06] MEDS: LACTATED RINGER'S 1000 ML IV SCH (04:00)
[2016-04-06 05:29] LABS: AUTOMATED NEUTROPHIL # 11.9 TH/MM3 (1.8-7.7); BASOPHIL % 0.3 % (0.0-2.0); HEMO FLAGS DIFF FINAL; LYMPH % 10.6 % (9.0-44.0); LYMPHOCYTE # 1.6 TH/MM3 (1.0-4.8); MEAN CELL VOLUME 91.8 FL (80.0-100.0); MEAN CORPUSCULAR HEMOGLOBIN 30.3 PG (27.0-34.0); MONO % 11.7 % (0.0-8.0); NEUT % 77.4 % (16.0-70.0); PLATELET COUNT 254 TH/MM3 (150-450); RED BLOOD COUNT 3.27 MIL/MM3 (4.50-5.90); RED CELL DISTRIBUTION WIDTH 13.6 % (11.6-17.2); WHITE BLOOD COUNT 15.4 TH/MM3 (4.0-11.0)
[2016-04-06 05:51] LABS: BICARBONATE 31.4 MEQ/L (21.0-32.0); MAGNESIUM 2.3 MG/DL (1.5-2.5); POTASSIUM 4.4 MEQ/L (3.5-5.1)
[2016-04-06] MEDS: AMIODARONE 200 MG TAB PO SCH ×2 (06:31→20:34)
[2016-04-06] MEDS: RESP: ALBUTEROL 2.5 MG/IPRATROPIUM 0.5 MG NEB (SCH) NEB ×4 (08:00→20:18)
[2016-04-06] MEDS ORDERED: GADODIAMIDE PF 287 MG/ML 20 ML VIAL (for RAD MRI) IV ONE (08:36)
[2016-04-06] MEDS: SODIUM CHLORIDE 0.9% FLUSH 5 ML FLUSH IV FLUSH SCH ×2 (09:00→20:35)
[2016-04-06] MEDS: DOCUSATE SODIUM 100 MG CAP PO SCH ×3 (09:00→20:35)
[2016-04-06] MEDS: PANTOPRAZOLE SOD 40 MG DELAYED RELEASE TAB PO SCH (09:00)
[2016-04-06] MEDS: MAGNESIUM HYDROXIDE SUSP 30 ML CUP PO SCH ×2 (09:00→11:24)
[2016-04-06] MEDS: POLYETHYLENE GLYCOL 17 GM PKG PO SCH ×2 (09:00→11:24)
[2016-04-06] MEDS: FAMOTIDINE 20 MG TAB PO SCH ×3 (09:00→20:35)
--- NOTE | 2016-04-06 09:15 | RADRPT ---
EXAM DATE/TIME: 04/06/2016 08:24 [facility] COMPARISON: No previous studies available for comparison. INDICATIONS : Non verbal. Right side facial droop. Recent CABG. CONTRAST: 15 cc Omniscan (gadodiamide) IV MEDICAL HISTORY : Hypertension. Cardiovascular disease Hypercholesterolemia. SURGICAL HISTORY : CABG Appendectomy. ENCOUNTER: Subsequent ACUITY: 4-6 days PAIN SCORE: 2/10 LOCATION: chest. TECHNIQUE: Multiplanar, multisequence MRI of the brain was performed both prior to and following the administrat ion of paramagnetic contrast. FINDINGS: Numerous subcentimeter foci of flair signal abnormality and restricted diffusion seen in the perivent ricular white matter of the left frontal, parietal and temporal lobes compatible with small subacute infarcts. Some are in the subcortical region. These are superimposed on chronic white matter changes which are left more so than right. No bleed demonstrated. No mass or abnormal enhancement. There is n o midline shift. CONCLUSION: Numerous small subacute white matter and subcortical infarcts of the left cerebral hemisphere that ar e most likely embolic. No bleed. No mass effect or midline shift. Ranjit Gaytan MD on April 06, 2016 at 9:10 Board Certified Radiologist. This report was verified electronically.
[2016-04-06] MEDS: CLOPIDOGREL 75 MG TAB PO SCH (10:03)
[2016-04-06] MEDS: MULTIVITAMINS/MINERALS THERAPEUTIC TAB PO SCH (10:03)
[2016-04-06] MEDS: ASPIRIN 81 MG CHEW TAB PO SCH (10:03)
[2016-04-06] MEDS: METOPROLOL TARTRATE 25 MG TAB PO SCH ×2 (10:04→20:34)
--- NOTE | 2016-04-06 10:21 | PD.CAR.PN ---
CVT Progress Note CVT: POD #: 2 Subjective/Hospital Course: 60/ male admitted with unstable angina, admitted to chest pain center, and underwent cardiac cath by Dr Li, found to have multivessel disease with EF 65%, received 300mg plavix in ED PMH: IBS, hx of CVA Dec 2015 / has some short term memory and recall loss, no motor deficits , HTN, HLP, glaucoma , gout intolerant to statins ( has severe myalgia ) PRU : 182 04/02 04/02 had episode of chest pain this am after getting up to bathroom , relieved with NTG, ECG unchanged Heparin gtt started, also has hx of irritable bowel, relieved with pain meds, ( hydrocodone) , Bentyl prn on schedule for surgery on 04/03 had episode of chest pain this am while eating did not tell nurse, no ECG changes, trop neg changed to Nitro gtt, continue heparin on ASA, statin BB, pain relieved after 3-5 min no further chest pain since, Dr Ramirez made aware scheduled for surgery in am 04/04 CABG x 2, JIANG to LAD, SVG to D1, EVH extubated after surgery, crystalloid 2000cc, cellsaver 720cc, urine 600cc 04/05 pt has some confusion during the night hx of CVA with cognitive and memory recall in Dec 2015 mildly confused this am, was able to ambulate with rolling walker to stepdown unit with minimal assist no motor deficit noted, + facial symmetry , will need to start on plavix when chest tube out PT/OT/ speech consulted for cognitive eval leave chest tube in , pulm toileting narcotics minimized, IV narcotics dc 04/06/16 Called regarding worsening expressive aphasia. He underwent a head CT and brain MRI. No motor or sensory deficits. H/O CVA in December, with similar symptoms. no other complaints. Objective: Vital Signs Date Time Temp Pulse Resp B/P Pulse Ox O2 Delivery O2 Flow Rate FiO2 04/06/16 07:28 82 20 141/68 93 04/06/16 07:00 82 04/06/16 06:00 62 04/06/16 05:00 62 04/06/16 04:00 72 04/06/16 03:07 98.5 76 18 130/63 94 04/06/16 03:00 77 04/06/16 02:00 75 04/06/16 01:00 74 2/18/17 00:00 66 04/05/16 23:45 18 04/05/16 23:00 98.8 70 16 101/57 94 04/05/16 23:00 71 04/05/16 22:00 77 04/05/16 21:00 84 04/05/16 20:00 83 04/05/16 19:46 96 04/05/16 19:00 99.9 93 28 122/58 93 04/05/16 19:00 92 04/05/16 18:00 83 04/05/16 17:00 86 04/05/16 16:00 85 04/05/16 15:00 84 04/05/16 15:00 98.8 87 18 117/55 95 04/05/16 14:00 79 04/05/16 13:00 73 04/05/16 12:00 74 04/05/16 11:00 97.5 73 20 119/57 96 04/05/16 11:00 73 Labs: Laboratory Tests Test 04/06/16 04/06/16 05:11 05:17 White Blood Count 15.4 TH/MM3 (4.0-11.0) Red Blood Count 3.27 MIL/MM3 (4.50-5.90) Hemoglobin 9.9 GM/DL (13.0-17.0) Hematocrit 30.0 % (39.0-51.0) Mean Corpuscular Volume 91.8 FL (80.0-100.0) Mean Corpuscular Hemoglobin 30.3 PG (27.0-34.0) Mean Corpuscular Hemoglobin 33.0 % Concent (32.0-36.0) Red Cell Distribution Width 13.6 % (11.6-17.2) Platelet Count 254 TH/MM3 (150-450) Mean Platelet Volume 8.1 FL (7.0-11.0) Neutrophils (%) (Auto) 77.4 % (16.0-70.0) Lymphocytes (%) (Auto) 10.6 % (9.0-44.0) Monocytes (%) (Auto) 11.7 % (0.0-8.0) Eosinophils (%) (Auto) 0.0 % (0.0-4.0) Basophils (%) (Auto) 0.3 % (0.0-2.0) Neutrophils # (Auto) 11.9 TH/MM3 (1.8-7.7) Lymphocytes # (Auto) 1.6 TH/MM3 (1.0-4.8) Monocytes # (Auto) 1.8 TH/MM3 (0-0.9) Eosinophils # (Auto) 0.0 TH/MM3 (0-0.4) Basophils # (Auto) 0.0 TH/MM3 (0-0.2) CBC Comment DIFF FINAL Differential Comment Sodium Level 138 MEQ/L (136-145) Potassium Level 4.4 MEQ/L (3.5-5.1) Chloride Level 102 MEQ/L (98-107) Carbon Dioxide Level 31.4 MEQ/L (21.0-32.0) Anion Gap 5 MEQ/L (5-15) Blood Urea Nitrogen 14 MG/DL (7-18) Creatinine 0.94 MG/DL (0.60-1.30) Estimat Glomerular Filtration 82 ML/MIN (>89) Rate Random Glucose 120 MG/DL (74-106) Calcium Level 7.7 MG/DL (8.5-10.1) Magnesium Level 2.3 MG/DL (1.5-2.5) Result Diagram: 04/06/16 0511 04/06/16 0517 Imaging: Last 24 hours Impressions Brain MRI 04/06/16 0000 Signed Impressions: Service Date/Time: Wednesday, April 06, 2016 08:24 - CONCLUSION: Numerous small subacute white matter and subcortical infarcts of the left cerebral hemisphere that are most likely embolic. No bleed. No mass effect or midline shift. Ranjit Gaytan MD Cardiovascular: RRR Telemetry: NSR Pulmonary: CTA GI/: NABS, NT Incision: dry and intact CT: 160ml/12 hrs Plan: Gentle diuresis today Possible small embolic shower perioperatively, but difficult to interpret from prior CVA. Speech, physical, and occupational tx consulted Encourage ambulation, PO intake Stim BM Continue chest tubes one more day. (1) Coronary artery disease (2) S/P CABG x 2 Plan: on BB, intolerant to statin, has severe myalgia ASA , start plavix in am aggressive pulm toileting nebs, ezpap , acapella OOB, ambulate CM eval for HHC (3) Unstable angina (4) Hypertension Plan: stable (5) Hyperlipemia Plan: intolerant to statin, has severe myalgia heart healthy diet (6) History of CVA (cerebrovascular accident) Plan: PT/OT/ speech start Plavix in am Anne-Marie Ramirez MD Apr 06, 2016 10:21
[2016-04-06] MEDS: FUROSEMIDE 40 MG/4 ML VIAL IV PUSH SCH (11:24)
[2016-04-06] MEDS: KETOROLAC TROMETHAMINE 30 MG/ML (IVP) VIAL IV PUSH PRN (17:47)
[2016-04-06] MEDS: SENNOSIDES 8.6 MG TAB PO SCH (20:35)
--- NOTE | 2016-04-06 22:17 | MB ---
cc: QUENTIN GARCIA DATE OF CONSULTATION 04/06/16 REASON FOR CONSULTATION Stroke HISTORY OF PRESENT ILLNESS Mr. Epstein is a 60-year-old man who came in with unstable angina was found to have coronary artery disease on cath. He is status post coronary artery bypass graft procedure. The patient has a history of stroke last December with mild confusion. The patient developed worsening expressive aphasia, right-sided weakness. He has had an MRI of the brain done which revealed multiple subacute white matter and cortical infarction left cerebral hemisphere probably embolic. CT of the brain also showed areas of low-density posterior left temporal and parietal lobes with no hemorrhage. He also had a carotid ultrasound showing moderate soft plaque at the proximal left ICA. LABORATORY DATA Sodium is 138, potassium of 4.4, chloride 102, CO2 31, BUN is 14, creatinine 0.94, glucose is 120, APTT 50.8. MEDICATIONS 1. Amiodarone 200 mg b.i.d. 2. Lasix 40 mg daily IV. 3. Plavix 75 mg daily. 4. Colace 100 mg b.i.d. 5. Albuterol nebulizer. 6. Aspirin 81 mg daily. 7. Multivitamin. 8. Metoprolol 12.5 mg b.i.d. 9. Dulcolax 10 mg as needed. 10. Tylenol prn 11. Zofran prn 12. Pepcid 20 mg b.i.d. 13. [place] as needed for pain. NEUROLOGIC EXAMINATION Blood pressure is 140/67, pulse 72, respirations are 16, temperature 98 degrees. Higher cortical function - he is alert. He has an expressive aphasia. He can follow simple commands. Cranial nerves: He has a right upper motor neuron VII palsy. Other cranial nerves are intact. On motor exam he is about 0/5 in strength in the right arm, 1/5 right leg strength. He has normal strength on the left side both arm and leg. IMPRESSION Multiple strokes in left hemisphere. RECOMMENDATIONS I would like to get a CT angiogram of the neck to further evaluate the left carotid stenosis. Continue the Plavix and aspirin. Also check a lipid panel. We will obtain an echocardiogram as well. MD KARLOS Reynolds/ /10:04 PM /10:10 PM
[2016-04-06 22:38] LABS: HDL CHOLESTEROL 34.4 MG/DL (40.0-60.0)
[2016-04-06] MEDS ORDERED: IOHEXOL 350 MG/ML 10 ML VIAL (for RAD DIAG) IV ONE (23:00)
--- NOTE | 2016-04-06 23:55 | RADRPT ---
EXAM DATE/TIME: 04/06/2016 22:47 [facility] COMPARISON: MRI BRAIN W & W/O CONTRAST, April 06, 2016, 8:24. INDICATIONS : Expressive aphasia and right sided weakness. IV CONTRAST: 100 cc Omnipaque 350 (iohexol) IV ; Cumulative dose for multiple exams. RADIATION DOSE: 14.87 CTDIvol (mGy) ; Combined studies MEDICAL HISTORY : Cardiovascular disease. Hypertension. CVA. SURGICAL HISTORY : None. ENCOUNTER: Initial ACUITY: 1 day PAIN SCALE: 0/10 LOCATION: cranial TECHNIQUE: Volumetric scanning was performed using a multi-row detector CT scanner. The data was post processed with a variety of visualization algorithms including full volume maximum intensity projection, multi -planar sliding thin slab reformation, curved planar reformation, and surface rendering techniques. Using automated exposure control and adjustment of the mA and/or kV according to patient size, radiat ion dose was kept as low as reasonably achievable to obtain optimal diagnostic quality images. FINDINGS: There is short segment occlusion of the left M1 segment of the middle cerebral artery with collateral flow in the occlusion measuring 10 mm in length. The right middle cerebral artery appears normal. Th ere is no evidence of aneurysm. Examination of posterior fossa also demonstrates no evidence of aneurysm or vascular malformation. Th e vertebral arteries are codominant. There is a patent posterior communicating artery on the right. CONCLUSION: 1. 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 This report was verified electronically.
--- NOTE | 2016-04-06 23:58 | RADRPT ---
EXAM DATE/TIME: 04/06/2016 22:47 [place] COMPARISON: No previous studies available for comparison. INDICATIONS : Expressive aphasia and right sided weakness. IV CONTRAST: 100 cc Omnipaque 350 (iohexol) IV ; Cumulative dose for multiple exams. RADIATION DOSE: 30.5 CTDIvol (mGy) ; Combined studies MEDICAL HISTORY : Cardiovascular disease. Hypertension. CVA. SURGICAL HISTORY : None. ENCOUNTER: Initial ACUITY: 1 day PAIN SCALE: 0/10 LOCATION: neck TECHNIQUE: Volumetric scanning was performed using a multirow detector CT scanner. The data was post processed with a variety of visualization algorithms including full-volume maximum intensity projection, multip lanar sliding thin-slab reformation, curved-planar reformation, and surface-rendering techniques. Us ing automated exposure control and adjustment of the mA and/or kV according to patient size, radiatio n dose was kept as low as reasonably achievable to obtain optimal diagnostic quality images. FINDINGS: No abnormality is identified within the lung apices. There is normal origin of vessels from the arch without evidence of proximal stenosis. Vertebral arteries are codominant. Examination of the right common carotid artery demonstrates the vessel to be widely patent. There is 0-10% stenosis at the origin of the internal carotid artery with minimal calcific plaque present. Mor e distally the cervical internal carotid artery is intact. Examination of the left common carotid artery demonstrates the vessel to be widely patent. There is 3 0-40% stenosis at the origin of the internal carotid artery. More distally the cervical internal kelly tid artery is intact. Percent stenosis is calculated using the diameter of the stenotic region over the diameter of the nor mal distal internal carotid artery. CONCLUSION: 1. There is 30-40% stenosis at the origin of the left internal carotid artery. There is 0-10% stenosi s of the right Charlie Sims MD on April 06, 2016 at 23:54 Board Certified Radiologist. This report was verified electronically.
[2016-04-07] VITALS (26 sets, daily range): BP systolic 94–149; BP diastolic 51–70; PULSE 66–79; RESP 16–18; TEMP 97.1–98.5; O2SAT 94–99
[2016-04-07] MEDS: LACTATED RINGER'S 1000 ML IV SCH (01:00)
[2016-04-07] MEDS: ACETAMINOPHEN/HYDROcodone 325 MG/5 MG TAB PO PRN ×4 (03:19→21:37)
[2016-04-07 04:38] LABS: BICARBONATE 30.1 MEQ/L (21.0-32.0); POTASSIUM 4.4 MEQ/L (3.5-5.1)
[2016-04-07] MEDS: INSULIN ASPART SUPPLEMENTAL SCALE SQ SCH ×4 (06:48→20:56)
[2016-04-07] MEDS: RESP: ALBUTEROL 2.5 MG/IPRATROPIUM 0.5 MG NEB (SCH) NEB (08:00)
[2016-04-07] MEDS: SODIUM CHLORIDE 0.9% FLUSH 5 ML FLUSH IV FLUSH SCH ×2 (09:00→20:56)
[2016-04-07] MEDS: MULTIVITAMINS/MINERALS THERAPEUTIC TAB PO SCH (09:04)
[2016-04-07] MEDS: CLOPIDOGREL 75 MG TAB PO SCH (09:05)
[2016-04-07] MEDS: AMIODARONE 200 MG TAB PO SCH ×2 (09:06→20:56)
[2016-04-07] MEDS: PANTOPRAZOLE SOD 40 MG DELAYED RELEASE TAB PO SCH (09:06)
[2016-04-07] MEDS: DOCUSATE SODIUM 100 MG CAP PO SCH ×2 (09:06→20:56)
[2016-04-07] MEDS: FAMOTIDINE 20 MG TAB PO SCH ×2 (09:06→20:56)
[2016-04-07] MEDS: ASPIRIN 81 MG CHEW TAB PO SCH (09:06)
[2016-04-07] MEDS: METOPROLOL TARTRATE 25 MG TAB PO SCH ×2 (09:06→20:56)
[2016-04-07] MEDS: FUROSEMIDE 40 MG/4 ML VIAL IV PUSH SCH (09:07)
[2016-04-07] MEDS: MAGNESIUM HYDROXIDE SUSP 30 ML CUP PO SCH (09:08)
[2016-04-07] MEDS: POLYETHYLENE GLYCOL 17 GM PKG PO SCH (09:08)
--- NOTE | 2016-04-07 10:10 | HHI.PR ---
Review/Management Diagnosis several left hemisphere strokes, left M1 occlusion Plan continue plavix and asa f/u echo Diagnosis/Plan: Subjective Subjective Comments No acute events reported Speech is improving and he is having more mobility of RUE Active Medications Current Medications Medications (Trade) Dose Ordered Sig/Mak Route Start Time Stop Time Status Last Admin (Protonix) 40 mg DAILY PO 04/01/16 13:30 04/07/16 09:06 (Tylenol) 500 mg Q4H PRN PO 04/01/16 17:00 (Pepcid) 20 mg BID PO 04/01/16 21:00 04/07/16 09:06 (Milk Of Magnesia Liq) 30 ml Q12H PRN PO 04/01/16 17:00 (Narcan Inj) 0.4 mg UNSCH PRN IV 04/01/16 17:00 ([place] 5-325 Mg) 1 tab Q4H PRN PO 04/01/16 17:45 04/07/16 09:05 (Pill Splitter) 1 ea UNSCH PRN OTHER 04/03/16 12:00 Atorvastatin Calcium 40 mg 40 mg HS PO 04/03/16 21:00 Hold (Lr 1000 ml Inj) 1,000 ml @ 30 mls/hr Q24H IV 04/04/16 04:00 (NS Flush) 2 ml BID IV FLUSH 04/04/16 21:00 04/07/16 09:00 IV Flush 2 ml 2 ml UNSCH PRN IV FLUSH 04/04/16 10:00 (Lr 1000 ml Inj) 500 ml @ 500 mls/hr Q1H PRN IV 04/04/16 09:56 (Aspirin Chew) 81 mg DAILY PO 04/05/16 09:00 04/07/16 09:06 (Tylenol) 650 mg Q4H PRN PO 04/04/16 10:00 Ondansetron HCl 4 mg 4 mg Q6H PRN IV PUSH 04/04/16 10:00 04/05/16 17:08 Magnesium Sulfate 2 gm/Sodium Chloride 104 ml @ 100 mls/hr UNSCH PRN IV 04/04/16 10:00 (Magnesium Sulfate Inj/NS Inj) 104 ml @ 50 mls/hr UNSCH PRN IV 04/04/16 10:00 (Toradol Inj) 15 mg Q6H PRN IV PUSH 04/04/16 18:15 2/21/17 18:14 04/06/16 17:47 (Colace) 100 mg BID PO 04/05/16 21:00 04/07/16 09:06 (Theragran M Tab) 1 tab DAILY PO 04/05/16 09:00 04/07/16 09:04 (Milk Of Magnesia Liq) 30 ml DAILY PO 04/05/16 09:00 04/07/16 09:08 (Miralax) 17 gm DAILY PO 04/06/16 09:00 04/07/16 09:08 (Senokot) 8.6 mg HS PO 04/05/16 21:00 04/06/16 20:35 (Fleets Enema (Adult)) 133 ml UNSCH PRN RECTAL 04/05/16 08:45 (Lopressor) 12.5 mg BID PO 04/05/16 09:00 04/07/16 09:06 (D50w (Vial) Inj) 25 ml UNSCH PRN IV 04/05/16 08:45 (Glucagon Inj) 1 mg UNSCH PRN OTHER 04/05/16 08:45 (NovoLOG SUPPLEMENTAL SCALE) 1 ACHS SQ 04/06/16 11:00 (Plavix) 75 mg DAILY PO 04/06/16 09:00 04/07/16 09:05 (Cordarone) 200 mg BID PO 04/06/16 21:00 04/07/16 09:06 (Lasix Inj) 40 mg DAILY IV PUSH 04/06/16 10:30 04/07/16 09:07 Allergies Allergies Coded Allergies HMG-CoA Reductase Inhibitors (Verified Allergy, Intermediate, muscle pain, ) Exam I&O / VS 04/06/16 04/06/16 04/07/16 15:00 23:00 07:00 Intake Total 360 ml 720 ml Output Total 1475 ml 650 ml Balance -1115 ml 70 ml Intake Oral 360 ml 720 ml Output Urine Total 1400 ml 650 ml Chest Tube Drainage Total 75 ml # Bowel Movements 0 0 Vital Signs Date Time Temp Pulse Resp B/P Pulse Ox O2 Delivery O2 Flow Rate FiO2 04/07/16 09:00 77 04/07/16 08:00 78 04/07/16 07:00 97.8 77 18 138/68 99 04/07/16 07:00 72 04/07/16 06:00 69 04/07/16 05:00 68 04/07/16 04:00 69 04/07/16 03:00 97.6 73 18 144/70 94 04/07/16 03:00 71 04/07/16 02:00 69 04/07/16 01:00 68 04/07/16 00:00 68 04/06/16 23:00 74 04/06/16 23:00 98.6 76 18 128/67 94 04/06/16 22:00 65 04/06/16 21:00 71 04/06/16 20:18 92 21 04/06/16 20:00 79 04/06/16 19:15 98.6 80 20 140/67 95 04/06/16 19:15 79 04/06/16 18:00 72 04/06/16 17:00 75 04/06/16 16:00 83 04/06/16 15:00 98.5 83 18 136/65 94 04/06/16 15:00 74 04/06/16 14:00 73 04/06/16 13:00 72 04/06/16 12:00 72 04/06/16 11:05 98.9 73 18 131/64 94 04/06/16 11:00 69 Exam Comments alert, follows commands. He is able to repeat simple phrases today PERRL, EOM-I mild RUMN CN 7 palsey 4/5 RUE and RLE. 5/5 LUE and LLE Objective Radiology Results CTA neck--no significant stenosis CTA brain--occlusion left M1 segment. Micro and Labs Laboratory Tests Test 04/07/16 03:46 Sodium Level 137 Potassium Level 4.4 Chloride Level 100 Carbon Dioxide Level 30.1 Anion Gap 7 Blood Urea Nitrogen 14 Creatinine 0.88 Estimat Glomerular Filtration 88 Rate Random Glucose 112 Calcium Level 8.3 Diagnostic Tests ECHO---pending Cristian Painting PhD Apr 07, 2016 10:10
--- NOTE | 2016-04-07 10:43 | PD.CAR.PN ---
CVT Progress Note CVT: POD #: 3 Subjective/Hospital Course: 60/ male admitted with unstable angina, admitted to chest pain center, and underwent cardiac cath by Dr Li, found to have multivessel disease with EF 65%, received 300mg plavix in ED PMH: IBS, hx of CVA Dec 2015 / has some short term memory and recall loss, no motor deficits , HTN, HLP, glaucoma , gout intolerant to statins ( has severe myalgia ) PRU : 182 04/02 04/02 had episode of chest pain this am after getting up to bathroom , relieved with NTG, ECG unchanged Heparin gtt started, also has hx of irritable bowel, relieved with pain meds, ( hydrocodone) , Bentyl prn on schedule for surgery on 04/03 had episode of chest pain this am while eating did not tell nurse, no ECG changes, trop neg changed to Nitro gtt, continue heparin on ASA, statin BB, pain relieved after 3-5 min no further chest pain since, Dr Ramirez made aware scheduled for surgery in am 04/04 CABG x 2, JIANG to LAD, SVG to D1, EVH extubated after surgery, crystalloid 2000cc, cellsaver 720cc, urine 600cc 04/05 pt has some confusion during the night hx of CVA with cognitive and memory recall in Dec 2015 mildly confused this am, was able to ambulate with rolling walker to stepdown unit with minimal assist no motor deficit noted, + facial symmetry , will need to start on plavix when chest tube out PT/OT/ speech consulted for cognitive eval leave chest tube in , pulm toileting narcotics minimized, IV narcotics dc 04/06/16 Called regarding worsening expressive aphasia. He underwent a head CT and brain MRI. No motor or sensory deficits. H/O CVA in December, with similar symptoms. no other complaints. 04/07/16 Appreciate input from Neurology. Slightly improved today with more verbalization. No complaints. Ambulating well. Objective: Vital Signs Date Time Temp Pulse Resp B/P Pulse Ox O2 Delivery O2 Flow Rate FiO2 04/07/16 09:00 77 04/07/16 08:00 78 04/07/16 07:00 97.8 77 18 138/68 99 04/07/16 07:00 72 04/07/16 06:00 69 04/07/16 05:00 68 04/07/16 04:00 69 04/07/16 03:00 97.6 73 18 144/70 94 04/07/16 03:00 71 04/07/16 02:00 69 04/07/16 01:00 68 04/07/16 00:00 68 04/06/16 23:00 74 04/06/16 23:00 98.6 76 18 128/67 94 04/06/16 22:00 65 04/06/16 21:00 71 04/06/16 20:18 92 21 04/06/16 20:00 79 04/06/16 19:15 98.6 80 20 140/67 95 04/06/16 19:15 79 04/06/16 18:00 72 04/06/16 17:00 75 04/06/16 16:00 83 04/06/16 15:00 98.5 83 18 136/65 94 04/06/16 15:00 74 04/06/16 14:00 73 04/06/16 13:00 72 04/06/16 12:00 72 04/06/16 11:05 98.9 73 18 131/64 94 04/06/16 11:00 69 Labs: Laboratory Tests Test 04/07/16 03:46 Sodium Level 137 MEQ/L (136-145) Potassium Level 4.4 MEQ/L (3.5-5.1) Chloride Level 100 MEQ/L (98-107) Carbon Dioxide Level 30.1 MEQ/L (21.0-32.0) Anion Gap 7 MEQ/L (5-15) Blood Urea Nitrogen 14 MG/DL (7-18) Creatinine 0.88 MG/DL (0.60-1.30) Estimat Glomerular Filtration 88 ML/MIN (>89) Rate Random Glucose 112 MG/DL (74-106) Calcium Level 8.3 MG/DL (8.5-10.1) Result Diagram: 04/06/16 0511 04/07/16 0346 Cardiovascular: RRR Telemetry: NSR Pulmonary: CTA GI/: NABS, NT Incision: dry and intact CT: 70ml recorded over last day Plan: D/C chest tubes I discussed d/c planning and inpatient rehab is appropriate. He should be able to go tomorrow. Continue diuresis today Stim BM (1) Coronary artery disease (2) S/P CABG x 2 Plan: on BB, intolerant to statin, has severe myalgia ASA , start plavix in am aggressive pulm toileting nebs, ezpap , acapella OOB, ambulate CM eval for HHC (3) Unstable angina (4) Hypertension Plan: stable (5) Hyperlipemia Plan: intolerant to statin, has severe myalgia heart healthy diet (6) History of CVA (cerebrovascular accident) Plan: PT/OT/ speech start Plavix in am Anne-Marie Ramirez MD Apr 07, 2016 10:43
[2016-04-07] MEDS: SENNOSIDES 8.6 MG TAB PO SCH (20:56)
[2016-04-08] VITALS (27 sets, daily range): BP systolic 112–131; BP diastolic 55–65; PULSE 61–83; RESP 16–18; TEMP 97.3–97.9; O2SAT 94–96
[2016-04-08] MEDS: LACTATED RINGER'S 1000 ML IV SCH (03:20)
[2016-04-08] MEDS: INSULIN ASPART SUPPLEMENTAL SCALE SQ SCH ×4 (06:17→21:00)
[2016-04-08] MEDS: ACETAMINOPHEN/HYDROcodone 325 MG/5 MG TAB PO PRN ×3 (07:23→16:48)
[2016-04-08] MEDS ORDERED: PLAV75TA29 PO (08:57)
[2016-04-08] MEDS ORDERED: METO25TA3 PO (08:57)
[2016-04-08] MEDS ORDERED: AMIO200T PO (08:57)
[2016-04-08] MEDS ORDERED: THERM PO (08:57)
[2016-04-08] MEDS ORDERED: FAMO20TA2 PO (08:57)
[2016-04-08] MEDS ORDERED: HYDR-3516 PO (08:57)
[2016-04-08] MEDS ORDERED: DOCU1CAP39 PO (08:57)
[2016-04-08] MEDS: POLYETHYLENE GLYCOL 17 GM PKG PO SCH (09:00)
[2016-04-08] MEDS: DOCUSATE SODIUM 100 MG CAP PO SCH ×2 (09:00→21:00)
[2016-04-08] MEDS: FAMOTIDINE 20 MG TAB PO SCH ×2 (09:00→21:00)
[2016-04-08] MEDS: PANTOPRAZOLE SOD 40 MG DELAYED RELEASE TAB PO SCH (09:00)
--- NOTE | 2016-04-08 09:02 | HHI.DS ---
Discharge Summary Admission Date Apr 01, 2016 at 16:51 Discharge Date: Apr 08, 2016 Admitting Diagnosis chest pain (1) Unstable angina Diagnosis: Principal (2) Coronary artery disease Diagnosis: Principal (3) History of CVA (cerebrovascular accident) Diagnosis: Secondary (4) Hypertension Diagnosis: Secondary (5) Hyperlipemia Diagnosis: Secondary Procedures [facility] CABG Head CT Brain MRI Brief History 60/ male admitted with unstable angina, admitted to chest pain center, and underwent cardiac cath by Dr Li, found to have multivessel disease with EF 65%, received 300mg plavix in ED PMH: IBS, hx of CVA Dec 2015 / has some short term memory and recall loss, no motor deficits , HTN, HLP, glaucoma , gout intolerant to statins ( has severe myalgia ) PRU : 182 04/02 CBC/BMP: 04/06/16 0511 04/07/16 0346 Significant Findings Laboratory Tests Test 04/06/16 04/06/16 04/07/16 05:11 05:17 03:46 White Blood Count 15.4 TH/MM3 (4.0-11.0) Red Blood Count 3.27 MIL/MM3 (4.50-5.90) Hemoglobin 9.9 GM/DL (13.0-17.0) Hematocrit 30.0 % (39.0-51.0) Neutrophils (%) (Auto) 77.4 % (16.0-70.0) Monocytes (%) (Auto) 11.7 % (0.0-8.0) Neutrophils # (Auto) 11.9 TH/MM3 (1.8-7.7) Monocytes # (Auto) 1.8 TH/MM3 (0-0.9) Estimat Glomerular Filtration 82 ML/MIN (>89) 88 ML/MIN (>89) Rate Random Glucose 120 MG/DL 112 MG/DL (74-106) (74-106) Calcium Level 7.7 MG/DL 8.3 MG/DL (8.5-10.1) (8.5-10.1) Cholesterol Level 98 MG/DL (120-200) HDL Cholesterol 34.4 MG/DL (40.0-60.0) Imaging Last Impressions Neck CTA 04/06/16 0000 Signed Impressions: Service Date/Time: Wednesday, April 06, 2016 22:47 - CONCLUSION: 1. There is 30-40%% stenosis at the origin of the left internal carotid artery. There is 0-10%% stenosis of the right Charlie Sims MD Head CTA 04/06/16 0000 Signed Impressions: Service Date/Time: Wednesday, April 06, 2016 22:47 - CONCLUSION: 1. Occlusion of the M1 segment of the left middle cerebral artery as described above Charlie Sims MD Brain MRI 04/06/16 0000 Signed Impressions: Service Date/Time: Wednesday, April 06, 2016 08:24 - CONCLUSION: Numerous small subacute white matter and subcortical infarcts of the left cerebral hemisphere that are most likely embolic. No bleed. No mass effect or midline shift. Ranjit Gaytan MD Chest X-Ray 04/05/16 0500 Signed Impressions: Service Date/Time: Tuesday, April 05, 2016 05:48 - CONCLUSION: 1. Postsurgical changes as above. Subsegmental atelectasis both bases. Charlie Sims MD Head CT 04/05/16 0000 Signed Impressions: Service Date/Time: Tuesday, April 05, 2016 22:01 - CONCLUSION: Linear areas of low density in the posterior left temporal and parietal lobes likely representing areas of encephalomalacia. Areas of mass effect or hemorrhage are not seen. An acute abnormality is not clearly seen. Ranjit Guerrier MD Lower Extremity Ultrasound 04/01/16 0000 Signed Impressions: Service Date/Time: Friday, April 01, 2016 21:14 - CONCLUSION: Venous mapping as above. Ranjit Guerrier MD Carotid Artery Ultrasound 04/01/16 0000 Signed Impressions: Service Date/Time: Friday, April 01, 2016 21:44 - CONCLUSION: Moderate soft plaque at the proximal left internal carotid artery. The peak systolic velocities not clearly elevated. However given the appearance on the grayscale , a significant stenosis cannot be excluded. Further evaluation with a CTA or MRA would be recommended. Ranjit Guerrier MD PE at Discharge chest - CTA COR - RRR ABD - soft, NT, NABS wound - dry and intact Hospital Course 04/02 had episode of chest pain this am after getting up to bathroom , relieved with NTG, ECG unchanged Heparin gtt started, also has hx of irritable bowel, relieved with pain meds, ( hydrocodone) , Bentyl prn on schedule for surgery on 04/03 had episode of chest pain this am while eating did not tell nurse, no ECG changes, trop neg changed to Nitro gtt, continue heparin on ASA, statin BB, pain relieved after 3-5 min no further chest pain since, Dr Ramirez made aware scheduled for surgery in am 04/04 CABG x 2, JIANG to LAD, SVG to D1, EVH extubated after surgery, crystalloid 2000cc, cellsaver 720cc, urine 600cc 04/05 pt has some confusion during the night hx of CVA with cognitive and memory recall in Dec 2015 mildly confused this am, was able to ambulate with rolling walker to stepdown unit with minimal assist no motor deficit noted, + facial symmetry , will need to start on plavix when chest tube out PT/OT/ speech consulted for cognitive eval leave chest tube in , pulm toileting narcotics minimized, IV narcotics dc 04/06/16 Called regarding worsening expressive aphasia. He underwent a head CT and brain MRI. No motor or sensory deficits. H/O CVA in December, with similar symptoms. no other complaints. 04/07/16 Appreciate input from Neurology. Slightly improved today with more verbalization. No complaints. Ambulating well. Pt Condition on Discharge: Good Discharge Disposition: Rehab Inpatient Discharge Instructions DIET: Follow Instructions for: Heart Healthy Diet Activities you can perform: Weight Bearing as Juli[place]esar, Shower Only-No Bath Activities to avoid: Lifting/Bending, Strenuous Activity, Driving Follow up Referrals: Cardiology with Charlie Li MD, FACC PCP Follow-up Surgical with Anne-Marie Ramirez MD New Orders: BASIC METABOLIC PROF - 2 Weeks CBC NO DIFF - 2 Weeks X-RAY CHEST PA & LAT - 2 Weeks New Medications: Amiodarone (Amiodarone) 200 Mg Tab 200 MG PO BID Regulate Heart Beat #28 Ref 0 TAB Clopidogrel (Plavix) 75 Mg Tab 75 MG PO DAILY Blood Clot Prevention #30 Ref 3 TAB Docusate Sodium (Dok) 100 Mg Cap 100 MG PO BID Constipation #28 Ref 0 CAP Famotidine (Famotidine) 20 Mg Tab 20 MG PO BID Prevent Stress Ulcers #28 Ref 0 TAB Hydrocodone-Acetaminophen (Hydrocodone-Acetaminophen) 5-325 mg Tab 1 TAB PO Q4H PRN PAIN 1-5 #20 Ref 0 TAB Metoprolol Tartrate (Metoprolol Tartrate) 25 Mg Tab 25 MG PO BID Blood Pressure Management #60 Ref 3 TAB Multiple Vitamins W/ Minerals (Thera M Plus) 1 Tab 1 TAB PO DAILY Nutritional Supplement #100 Ref 6 TAB Continued Medications: Aspirin (Aspirin) 81 Mg Chew 81 MG CHEW DAILY Ref 0 TAB Lisinopril (Lisinopril) 10 Mg Tab 10 MG PO DAILY #30 Ref 0 TAB Anne-Marie Ramirez MD Apr 08, 2016 09:02
[2016-04-08] MEDS: ASPIRIN 81 MG CHEW TAB PO SCH (09:16)
[2016-04-08] MEDS: MULTIVITAMINS/MINERALS THERAPEUTIC TAB PO SCH (09:16)
[2016-04-08] MEDS: FUROSEMIDE 40 MG/4 ML VIAL IV PUSH SCH (09:17)
[2016-04-08] MEDS: SODIUM CHLORIDE 0.9% FLUSH 5 ML FLUSH IV FLUSH SCH ×2 (09:17→21:00)
[2016-04-08] MEDS: AMIODARONE 200 MG TAB PO SCH ×2 (09:17→21:00)
[2016-04-08] MEDS: METOPROLOL TARTRATE 25 MG TAB PO SCH ×2 (09:17→21:00)
[2016-04-08] MEDS: CLOPIDOGREL 75 MG TAB PO SCH (09:17)
[2016-04-08] MEDS: MAGNESIUM HYDROXIDE SUSP 30 ML CUP PO SCH (09:18)
[2016-04-08] MEDS: SENNOSIDES 8.6 MG TAB PO SCH (21:00)
[2016-04-09] VITALS (17 sets, daily range): BP systolic 108–122; BP diastolic 55–58; PULSE 66–92; RESP 16–18; TEMP 98.1–99.1; O2SAT 95–96
[2016-04-09] MEDS: LACTATED RINGER'S 1000 ML IV SCH (04:00)
[2016-04-09] MEDS: INSULIN ASPART SUPPLEMENTAL SCALE SQ SCH ×2 (06:15→11:00)
[2016-04-09] MEDS: ACETAMINOPHEN/HYDROcodone 325 MG/5 MG TAB PO PRN (08:11)
[2016-04-09] MEDS: AMIODARONE 200 MG TAB PO SCH (08:33)
[2016-04-09] MEDS: CLOPIDOGREL 75 MG TAB PO SCH (08:33)
[2016-04-09] MEDS: METOPROLOL TARTRATE 25 MG TAB PO SCH (08:33)
[2016-04-09] MEDS: ASPIRIN 81 MG CHEW TAB PO SCH (08:33)
[2016-04-09] MEDS: FUROSEMIDE 40 MG/4 ML VIAL IV PUSH SCH (08:34)
[2016-04-09] MEDS: SODIUM CHLORIDE 0.9% FLUSH 5 ML FLUSH IV FLUSH SCH (08:34)
[2016-04-09] MEDS: MAGNESIUM HYDROXIDE SUSP 30 ML CUP PO SCH (08:37)
[2016-04-09] MEDS: POLYETHYLENE GLYCOL 17 GM PKG PO SCH (08:38)
[2016-04-09] MEDS: PANTOPRAZOLE SOD 40 MG DELAYED RELEASE TAB PO SCH (08:38)
[2016-04-09] MEDS: MULTIVITAMINS/MINERALS THERAPEUTIC TAB PO SCH (08:38)
[2016-04-09] MEDS: FAMOTIDINE 20 MG TAB PO SCH (08:38)
[2016-04-09] MEDS: DOCUSATE SODIUM 100 MG CAP PO SCH (08:38)
--- NOTE | 2016-04-09 09:21 | PD.CAR.PN ---
CVT Progress Note CVT: POD #: 5 Subjective/Hospital Course: 60/ male admitted with unstable angina, admitted to chest pain center, and underwent cardiac cath by Dr Li, found to have multivessel disease with EF 65%, received 300mg plavix in ED PMH: IBS, hx of CVA Dec 2015 / has some short term memory and recall loss, no motor deficits , HTN, HLP, glaucoma , gout intolerant to statins ( has severe myalgia ) PRU : 182 04/02 04/02 had episode of chest pain this am after getting up to bathroom , relieved with NTG, ECG unchanged Heparin gtt started, also has hx of irritable bowel, relieved with pain meds, ( hydrocodone) , Bentyl prn on schedule for surgery on 04/03 had episode of chest pain this am while eating did not tell nurse, no ECG changes, trop neg changed to Nitro gtt, continue heparin on ASA, statin BB, pain relieved after 3-5 min no further chest pain since, Dr Ramirez made aware scheduled for surgery in am 04/04 CABG x 2, JIANG to LAD, SVG to D1, EVH extubated after surgery, crystalloid 2000cc, cellsaver 720cc, urine 600cc 04/05 pt has some confusion during the night hx of CVA with cognitive and memory recall in Dec 2015 mildly confused this am, was able to ambulate with rolling walker to stepdown unit with minimal assist no motor deficit noted, + facial symmetry , will need to start on plavix when chest tube out PT/OT/ speech consulted for cognitive eval leave chest tube in , pulm toileting narcotics minimized, IV narcotics dc 04/06/16 Called regarding worsening expressive aphasia. He underwent a head CT and brain MRI. No motor or sensory deficits. H/O CVA in December, with similar symptoms. no other complaints. 04/07/16 Appreciate input from Neurology. Slightly improved today with more verbalization. No complaints. Ambulating well. 04/09 doing well, speech improved less expressive aphasia MRI brain noted , mini subcortical infarct left cerebral hemisphere, mostly embolic CTA neck: occlusion M1 segment LMCA ok to dc home with HHC and pt Objective: Vital Signs Date Time Temp Pulse Resp B/P Pulse Ox O2 Delivery O2 Flow Rate FiO2 04/09/16 06:00 78 04/09/16 05:00 75 04/09/16 04:00 99.1 74 16 108/55 95 04/09/16 04:00 74 04/09/16 03:00 70 04/09/16 02:00 69 04/09/16 01:00 66 04/09/16 00:00 98.5 67 16 109/58 96 04/09/16 00:00 71 04/08/16 23:00 69 04/08/16 22:00 72 04/08/16 21:00 71 04/08/16 20:00 72 04/08/16 20:00 97.6 73 16 131/63 96 04/08/16 18:01 73 04/08/16 17:54 18 04/08/16 17:01 73 04/08/16 16:00 73 04/08/16 15:15 97.6 72 18 112/65 96 04/08/16 15:00 78 04/08/16 14:00 67 04/08/16 13:00 70 04/08/16 12:01 79 04/08/16 11:30 97.9 77 18 125/63 95 04/08/16 11:00 76 04/08/16 10:01 82 Result Diagram: 04/06/16 0511 04/07/16 0346 (1) Coronary artery disease (2) S/P CABG x 2 Plan: on BB, intolerant to statin, has severe myalgia ASA ,t plavix in am aggressive pulm toileting nebs, ezpap , acapella OOB, ambulate CM eval for [facility] dc home today (3) Unstable angina (4) Hypertension Plan: stable (5) Hyperlipemia Plan: intolerant to statin, has severe myalgia heart healthy diet (6) History of CVA (cerebrovascular accident) Plan: PT/OT/ speech Plavix in am appreciate neuro willl need outp pt f/u with Jenifer Dickson Apr 09, 2016 09:21
[2016-04-09] MEDS ORDERED: GETGO ROLLING W1 MI1 (09:22)
--- NOTE | 2016-04-09 13:11 | HHI.PR ---
Review/Management Diagnosis several left hemisphere strokes, left M1 occlusion Plan continue plavix and asa ok to discharge from neuro standpoint--f/u with me as outpatient in 2-3 weeks Diagnosis/Plan: Subjective Subjective Comments No acute events reported Active Medications Current Medications Medications (Trade) Dose Ordered Sig/Mak Route Start Time Stop Time Status Last Admin (Protonix) 40 mg DAILY PO 04/01/16 13:30 04/07/16 09:06 (Tylenol) 500 mg Q4H PRN PO 04/01/16 17:00 (Pepcid) 20 mg BID PO 04/01/16 21:00 04/07/16 09:06 (Milk Of Magnjocelyn Liq) 30 ml Q12H PRN PO 04/01/16 17:00 (Narcan Inj) 0.4 mg UNSCH PRN IV 04/01/16 17:00 ([place] 5-325 Mg) 1 tab Q4H PRN PO 04/01/16 17:45 04/09/16 08:11 (Pill Splitter) 1 ea UNSCH PRN OTHER 04/03/16 12:00 Atorvastatin Calcium 40 mg 40 mg HS PO 04/03/16 21:00 Hold (Lr 1000 ml Inj) 1,000 ml @ 30 mls/hr Q24H IV 04/04/16 04:00 (NS Flush) 2 ml BID IV FLUSH 04/04/16 21:00 04/09/16 08:34 (NS Flush) 2 ml UNSCH PRN IV FLUSH 04/04/16 10:00 (Aspirin Chew) 81 mg DAILY PO 04/05/16 09:00 04/09/16 08:33 (Tylenol) 650 mg Q4H PRN PO 04/04/16 10:00 Ondansetron HCl 4 mg 4 mg Q6H PRN IV PUSH 04/04/16 10:00 04/05/16 17:08 Magnesium Sulfate 2 gm/Sodium Chloride 104 ml @ 100 mls/hr UNSCH PRN IV 04/04/16 10:00 (Magnesium Sulfate Inj/NS Inj) 104 ml @ 50 mls/hr UNSCH PRN IV 04/04/16 10:00 (Toradol Inj) 15 mg Q6H PRN IV PUSH 04/04/16 18:15 04/09/16 18:14 04/06/16 17:47 (Colace) 100 mg BID PO 04/05/16 21:00 04/07/16 09:06 (Theragran M Tab) 1 tab DAILY PO 04/05/16 09:00 04/08/16 09:16 (Milk Of Magnesia Liq) 30 ml DAILY PO 04/05/16 09:00 04/08/16 09:18 (Miralax) 17 gm DAILY PO 04/06/16 09:00 04/07/16 09:08 (Senokot) 8.6 mg HS PO 04/05/16 21:00 04/07/16 20:56 (Fleets Enema (Adult)) 133 ml UNSCH PRN RECTAL 04/05/16 08:45 04/08/16 14:48 (D50w (Vial) Inj) 25 ml UNSCH PRN IV 04/05/16 08:45 (Glucagon Inj) 1 mg UNSCH PRN OTHER 04/05/16 08:45 (NovoLOG SUPPLEMENTAL SCALE) 1 ACHS SQ 04/06/16 11:00 (Plavix) 75 mg DAILY PO 04/06/16 09:00 04/09/16 08:33 (Cordarone) 200 mg BID PO 04/06/16 21:00 04/09/16 08:33 (Lasix Inj) 40 mg DAILY IV PUSH 04/06/16 10:30 04/09/16 08:34 (Lopressor) 25 mg BID PO 04/07/16 21:00 04/09/16 08:33 Allergies Allergies Coded Allergies HMG-CoA Reductase Inhibitors (Verified Allergy, Intermediate, muscle pain, ) Exam I&O / VS 04/08/16 04/08/16 04/09/16 15:00 23:00 07:00 Intake Total 480 ml 240 ml Output Total 1075 ml 475 ml Balance -595 ml -235 ml Intake Oral 480 ml 240 ml Output Urine Total 1075 ml 475 ml # Voids 4 # Bowel Movements 1 0 Vital Signs Date Time Temp Pulse Resp B/P Pulse Ox O2 Delivery O2 Flow Rate FiO2 04/09/16 12:01 90 04/09/16 11:30 98.2 78 16 111/58 96 04/09/16 11:00 75 04/09/16 10:00 88 04/09/16 09:00 92 04/09/16 08:30 98.1 77 18 122/58 95 04/09/16 08:00 85 04/09/16 07:00 74 04/09/16 06:00 78 04/09/16 05:00 75 04/09/16 04:00 99.1 74 16 108/55 95 04/09/16 04:00 74 04/09/16 03:00 70 04/09/16 02:00 69 04/09/16 01:00 66 04/09/16 00:00 98.5 67 16 109/58 96 04/09/16 00:00 71 04/08/16 23:00 69 04/08/16 22:00 72 04/08/16 21:00 71 04/08/16 20:00 72 04/08/16 20:00 97.6 73 16 131/63 96 04/08/16 18:01 73 04/08/16 17:54 18 04/08/16 17:01 73 04/08/16 16:00 73 04/08/16 15:15 97.6 72 18 112/65 96 04/08/16 15:00 78 04/08/16 14:00 67 Exam Comments alert, follows commands. He is able to repeat simple phrases today--speech is improved. PERRL, EOM-I mild RUMN CN 7 palsey 5/5 RUE and RLE. 5/5 Cristian Billings PhD MD Apr 09, 2016 13:11
--- NOTE | 2016-04-09 16:47 | EC ---
Study Study Date:04/09/2016 STUDY CONCLUSIONS SUMMARY - Procedure narrative: Transthoracic echocardiography. Image quality was poor. The study was technically limited due to poor acoustic window availability. Scanning was performed from the parasternal, apical, and subcostal acoustic windows. - Left ventricle: The cavity size was normal. Wall thickness was increased in a pattern of mild LVH. Systolic function was probably normal. The estimated ejection fraction was in the range of 50% to 55%. Wall motion was normal; there were no regional wall motion abnormalities. - Aortic valve: Valve area: 2.02cm^2 (Vmax). - Mitral valve: Mild regurgitation. - Tricuspid valve: Mild regurgitation. If LV function is below 40, please consider prescribing an ACEI or ARB or document rationale for non-use. PROCEDURE DATA STUDY STATUS: Elective. Procedure: Transthoracic echocardiography. Image quality was poor. The study was technically limited due to poor acoustic window availability. Scanning was performed from the parasternal, apical, and subcostal acoustic windows. Study completion: The patient tolerated the procedure well. Transthoracic echocardiography. M-mode, complete 2D, complete spectral Doppler, and color Doppler. Patient status: Inpatient. CARDIAC ANATOMY LEFT VENTRICLE: Not well visualized. The cavity size was normal. Wall thickness was increased in a pattern of mild LVH. Systolic function was probably normal. The estimated ejection fraction was in the range of 50% to 55%. Wall motion was normal; there were no regional wall motion abnormalities. AORTIC VALVE: Trileaflet; normal thickness leaflets. Doppler: Transvalvular velocity was within the normal range. There was no stenosis. No regurgitation. Valve area: 2.02cm^2 (Vmax). AORTA: Aortic root: The aortic root was normal in size. MITRAL VALVE: Structurally normal valve. Doppler: Transvalvular velocity was within the normal range. There was no evidence for stenosis. Mild regurgitation. LEFT ATRIUM: The atrium was normal in size. RIGHT VENTRICLE: The cavity size was at the upper limits of normal. Wall thickness was normal. PULMONIC VALVE: Doppler: Transvalvular velocity was within the normal range. There was no evidence for stenosis. No regurgitation. TRICUSPID VALVE: Structurally normal valve. Doppler: Transvalvular velocity was within the normal range. Mild regurgitation. PULMONARY ARTERY: The main pulmonary artery was normal-sized. Systolic pressure was within the normal range. RIGHT ATRIUM: The atrium was normal in size. PERICARDIUM: There was no pericardial effusion. SYSTEMIC VEINS: Inferior vena cava: The vessel was normal in size. BASIC MEASUREMENTS ADULT NORMAL Left ventricle LV internal dimension, ED, chordal level, 43.9 mm 43-52 PLAX LV internal dimension, ES, chordal level, 33.9 mm 23-38 PLAX Fractional shortening, chordal level, PLAX *23 % >29 LV posterior wall thickness, ED 7.92 mm IVS/LVPW ratio, ED 1.08 <1.3 Ventricular septum Septal thickness, ED 8.59 mm Aortic valve Leaflet separation 19 mm 15-26 BASIC MEASUREMENTS ADULT NORMAL Aortic valve Leaflet separation 19 mm 15-26 Aorta Root diameter, ED 32 mm 20-37 Left atrium Anterior-posterior dimension, ES 29 mm 19-40 LA/aortic root ratio 0.91 DOPPLER MEASUREMENTS ADULT NORMAL Main pulmonary artery Pressure, S 27 mm Hg =30 Aortic valve Peak velocity, S 105 cm/s Valve area, Vmax 2.02 cm^2 Mitral valve Peak E-wave velocity 57.8 cm/s Peak A-wave velocity 75.5 cm/s Deceleration time 215 ms 150-230 Peak E/A ratio 0.8 Maximal regurgitant velocity 160 cm/s Tricuspid valve Regurgitant peak velocity 217 cm/s Peak RV-RA gradient, S 19 mm Hg Maximal regurgitant velocity 217 cm/s Systemic veins Estimated CVP 10 mm Hg Right ventricle RV pressure, S 29 mm Hg <30 Pulmonic valve Peak velocity, S 77.4 cm/s LEGEND: Mean values are shown as u=mean value. Asterisk (*) costa values outside specified normal range. Prepared and signed by Leo Cohen [id number]
--- NOTE | 2016-04-23 09:42 | RSPPFT ---
DATE OF PROCEDURE: 04/02/16 COMMENTS: Spirometry is consistent with severe airflow obstruction. The FEV1 is 1.3 at 47% of predicted. IMPRESSION: 1. Severe airflow obstruction.
== END 2016-04-09 14:42 | disposition home health service (06) | DRG 233 ==
LOC: NEPA 09:41 → NEDA 12:57 → HCPC 15:40 → OBSVTOIN 16:51 → HCVR 04-03 17:04 → UNDODISIN 04-03 18:50 → HCPC 04-05 09:23
PROVIDERS: ADMIT Internal Medicine Cardiovascular Disease; ATTEND Internal Medicine Cardiovascular Disease
PROC: 4A023N7 Measurement of Cardiac Sampling and Pressure, Left Heart, Percutaneous Approach (ICD-10-PCS; 2016-04-01)
PROC: 021009W Bypass Coronary Artery, One Artery from Aorta with Autologous Venous Tissue, Open Approach (ICD-10-PCS; 2016-04-01)
PROC: 06BQ4ZZ Excision of Left Saphenous Vein, Percutaneous Endoscopic Approach (ICD-10-PCS; 2016-04-01)
PROC: B2111ZZ Fluoroscopy of Multiple Coronary Arteries using Low Osmolar Contrast (ICD-10-PCS; 2016-04-01)
PROC: B2151ZZ Fluoroscopy of Left Heart using Low Osmolar Contrast (ICD-10-PCS; 2016-04-01)
PROC: 5A1221Z Performance of Cardiac Output, Continuous (ICD-10-PCS; 2016-04-01)
PROC: 02100Z9 Bypass Coronary Artery, One Artery from Left Internal Mammary, Open Approach (ICD-10-PCS; principal; 2016-04-01 13:45)
DX: I25.110 Atherosclerotic heart disease of native coronary artery with unstable angina pectoris (principal); I63.512 Cerebral infarction due to unspecified occlusion or stenosis of left middle cerebral artery; R47.01 Aphasia; I95.9 Hypotension, unspecified; I10 Essential (primary) hypertension; E78.5 Hyperlipidemia, unspecified; H35.30 Unspecified macular degeneration; H40.9 Unspecified glaucoma; M10.9 Gout, unspecified; M19.90 Unspecified osteoarthritis, unspecified site; K44.9 Diaphragmatic hernia without obstruction or gangrene; K58.9 Irritable bowel syndrome, unspecified; Z86.73 Personal history of transient ischemic attack (TIA), and cerebral infarction without residual deficits; Z79.82 Long term (current) use of aspirin; Z87.891 Personal history of nicotine dependence
CPT/HCPCS: 70450; 70496; 70498; 70553; 71010; 76937; 80048; 80061; 80076; 81001; 82550; 82552; 82948; 83036; 83735; 84132; 84484; 85014; 85025; 85027; 85576; 85610; 85730; 86850; 86900; 86901; 86920; 87641; 93005; 93306; 93458; 93880; 93970; 93998; 94002; 94010; 94150; 94640; 94664; 94667; A9579; C1769; C1893; C9399; J0131; J0282; J0690; J1644; J1815; J1885; J1940; J2150; J2250; J2270; J2370; J2405; J2440; J2720; J2930; J3010; J3370; J3480; J7030; P9047; Q9967